=== PATIENT | female | born 1945 | race Caucasian/White ===

== ENCOUNTER → 2016-06-25 | Outpatient (CLI) | payer MEDICARE ==
--- NOTE | 2016-06-25 10:34 | RAD ---
DATE: 06/25/16 EXAM: DIGITAL SCREEN BILAT W/CAD HISTORY: Routine screening COMPARISON: 06/01/15 This study was interpreted with the benefit of Computerized Aided Detection (CAD). TECHNIQUE: CC and MLO views of both breasts are obtained. FINDINGS: Breast Density: FATTY The breast parenchyma is primarily fatty replaced. Breast parenchyma level density A.. Scattered benign-appearing calcifications are seen in both breasts IMPRESSION: Benign findings BI-RADS CATEGORY: 2 BENIGN FINDING(S) RECOMMENDED FOLLOW-UP: 12M 12 MONTH FOLLOW-UP PQRS compliance statement: Patient information was entered into a reminder system with a target due date for the next mammogram. Mammography is a sensitive method for finding small breast cancers, but it does not detect them all and is not a substitute for careful clinical examination. A negative mammogram does not negate a clinically suspicious finding and should not result in delay in biopsying a clinically suspicious abnormality. "Our facility is accredited by the [employer] Mammography Program."
== END | disposition home or self-care (01) ==
LOC: MAMMO 09:46
PROVIDERS: ATTEND Family Medicine
DX: Z12.31 Encounter for screening mammogram for malignant neoplasm of breast (principal)
CPT/HCPCS: G0202; 77067

== ENCOUNTER → 2016-11-27 | Outpatient (CLI) | payer MEDICARE ==
--- NOTE | 2016-11-27 12:07 | RAD ---
Radionuclide gastric emptying study, 11/27/2016: History: Abdominal tightness This study was performed utilizing a solid test meal radiolabeled with 2.1 mCi of technetium 99m sulfur colloid. The time to half emptying of the test meal from the patient's stomach was estimated at 333 minutes. A normal T1/2 is 60 minutes +/- 30 minutes. IMPRESSION: Markedly delayed gastric emptying.
== END | disposition home or self-care (01) ==
LOC: NM 09:00
PROVIDERS: ATTEND Internal Medicine Gastroenterology
DX: K30 Functional dyspepsia (principal)
CPT/HCPCS: 78264; A9541

== ENCOUNTER → 2017-07-22 | Outpatient (CLI) | payer MEDICARE | END | disposition home or self-care (01) | LOC: MAMMO 13:41 | DX: Z12.31 Encounter for screening mammogram for malignant neoplasm of breast (principal) | CPT/HCPCS: 77063; 77067 ==

== ENCOUNTER → 2017-07-29 | Outpatient (CLI) | payer MEDICARE | END | disposition home or self-care (01) | LOC: US 10:38 | DX: R92.8 Other abnormal and inconclusive findings on diagnostic imaging of breast (principal) | CPT/HCPCS: 76641 ==

== ENCOUNTER → 2018-01-07 | Outpatient (CLI) | payer MEDICARE ==
--- NOTE | 2018-01-07 15:22 | RAD ---
Left breast ultrasound, 01/07/2018: History: Follow-up breast nodule A targeted ultrasound exam was performed at the 8-9 o'clock location approximately 4 cm from the nipple where a small nodule was identified on the 07/29/2017 exam. This smooth nodule demonstrates low level internal echoes. There is no definite posterior acoustic enhancement or shadowing. It measures 3 x 2 x 3 mm compared to measurements of 3 x 3 x 4 mm on the previous study. This slight difference could be on a technical basis. The nodule has not enlarged. No new abnormality is seen in this region. IMPRESSION: Stable small left breast nodule, probably a complicated cyst. Further sonographic follow-up in 6 months is suggested. BI-RADS 3-probably benign findings
== END | disposition home or self-care (01) ==
LOC: US 14:22
PROVIDERS: ATTEND Family Medicine
DX: N63.24 Unspecified lump in the left breast, lower inner quadrant (principal)
CPT/HCPCS: 76641

== ENCOUNTER → 2018-03-10 | Outpatient (CLI) | payer MEDICARE ==
--- NOTE | 2018-03-10 14:43 | RAD ---
CHEST PA LATERAL History: Shortness of breath for one week. Comparison: December 17, 2004 Findings: 2 views of the chest are submitted. There is some perihilar opacity bilaterally. Cardiac silhouette is similar. There is no dependent pleural fluid or pneumothorax. There is some relative fullness of the right hilar region. There is likely emphysema. Impression: 1. There is some perihilar opacity bilaterally which may be due to mild infiltrate or edema. There is likely emphysema. 2. There is some nonspecific fullness of the right hilar region more apparent on this exam than older exam, lymphadenopathy more definitively excluded by nonemergent CT. Electronically signed by: Sadi Matos MD (03/10/2018 2:39 PM) [email or web address]
== END | disposition home or self-care (01) ==
LOC: RAD 12:56
PROVIDERS: ATTEND Family Medicine
DX: R06.02 Shortness of breath (principal)
CPT/HCPCS: 71046

== ENCOUNTER 2018-06-05 12:20 | Inpatient (IN) | payer MEDICARE ==
[~2018-06-05] VITALS: Ht 160 cm; Wt 103.4 kg
[2018-06-05] MEDS ORDERED: IPRATRPIUM/ALBUTEROL 0.5/2.5MG 3 ML NEBU. NEB ONE (12:30)
--- NOTE | 2018-06-05 12:53 | PHYS DOC ---
Past Medical History Past Medical History: Hypertension, Other Additional Past Medical Histor: EMPHYSEMA Past Surgical History: , Other Additional Past Surgical Histo: BLADDER LIFT,HERNIA,LUMPECTOMY Alcohol Use: None Drug Use: None Adult General Chief Complaint Chief Complaint: SHORTNESS OF BREATH HPI HPI 72-year-old female presenting the emergency department today with worsening shortness of breath with a chronic nonproductive cough. Her dyspnea is worse with exertion and worse when she lays down. No alleviating factors. Reportedly she had decreased walking desats in clinic. She was sent here for further treatment and care. Review of systems is negative for abdominal pain nausea vomiting fevers or chills. All other review of systems is negative unless otherwise noted in history of present illness. ED course: 72-year-old female presenting with worsening dyspnea and decreasing oxygen saturations. On arrival the patient's blood pressure is quite elevated at 187 systolic. On examination she has crackles at the bases. Wheezing present as well. The patient was given a nebulizer here in the emergency department. Chest x-ray ordered along with blood work and EKG. EKG obtained and reviewed by myself shows sinus rhythm with a regular rate. ST segments congruent. Not suggestive of ACS. Lead V6 is difficult to interpret due to variable baseline and artifact. Review of Systems Review of Systems SEE ABOVE. Current Medications Current Medications Current Medications Medications (Trade) Dose Ordered Sig/Linda Start Time Stop Time Status Last Admin Dose Admin Albuterol/ Ipratropium (Duoneb) 3 ml 1X ONCE 06/05/18 12:30 06/05/18 12:31 DC 06/05/18 12:49 3 ML Furosemide (Lasix) 20 mg 1X ONCE 06/05/18 14:30 06/05/18 14:31 DC 06/05/18 15:16 20 MG Allergies Allergies Allergies Coded Allergies Type Severity Reaction Last Updated Verified Penicillins Allergy Unknown 01/08/17 Yes Physical Exam Physical Exam SEE ABOVE Constitutional: Well developed, well nourished, no acute distress, non-toxic appearance. HENT: Normocephalic, atraumatic, bilateral external ears normal, oropharynx moist, no oral exudates, nose normal. [] Eyes: PERRLA, EOMI, conjunctiva normal, no discharge. Neck: Normal range of motion, no tenderness, supple, no stridor. [] Cardiovascular:Heart rate regular rhythm, no murmur Lungs & Thorax: ABOVE. not in respiratory distress. Abdomen: Bowel sounds normal, soft, no tenderness, no masses, no pulsatile masses. Skin: Warm, dry, no erythema, no rash. [] Back: No tenderness, no CVA tenderness. [] Extremities: No tenderness, no cyanosis, no clubbing, ROM intact, no edema. Neurologic: Alert and oriented X 3, normal motor function, normal sensory function, no focal deficits noted. Psychologic: Affect normal, judgement normal, mood normal. [] Current Patient Data Vital Signs Vital Signs Date Time Temp Pulse Resp B/P (MAP) Pulse Ox O2 Delivery O2 Flow Rate FiO2 06/05/18 13:31 70 161/111 (128) 95 Nasal Cannula 2.0 06/05/18 12:23 98.1 20 98.1 Lab Values Laboratory Tests Test 06/05/18 12:30 06/05/18 13:15 White Blood Count 5.8 x10^3/uL (4.0-11.0) Red Blood Count 4.15 x10^6/uL (3.50-5.40) Hemoglobin 12.9 g/dL (12.0-15.5) Hematocrit 38.9 % (36.0-47.0) Mean Corpuscular Volume 94 fL (79-100) Mean Corpuscular Hemoglobin 31 pg (25-35) Mean Corpuscular Hemoglobin Concent 33 g/dL (31-37) Red Cell Distribution Width 13.7 % (11.5-14.5) Platelet Count 220 x10^3/uL (140-400) Neutrophils (%) (Auto) 69 % (31-73) Lymphocytes (%) (Auto) 22 % (24-48) L Monocytes (%) (Auto) 7 % (0-9) Eosinophils (%) (Auto) 1 % (0-3) Basophils (%) (Auto) 1 % (0-3) Neutrophils # (Auto) 4.0 x10^3uL (1.8-7.7) Lymphocytes # (Auto) 1.3 x10^3/uL (1.0-4.8) Monocytes # (Auto) 0.4 x10^3/uL (0.0-1.1) Eosinophils # (Auto) 0.1 x10^3/uL (0.0-0.7) Basophils # (Auto) 0.1 x10^3/uL (0.0-0.2) Sodium Level 142 mmol/L (136-145) Potassium Level 3.9 mmol/L (3.5-5.1) Chloride Level 105 mmol/L (98-107) Carbon Dioxide Level 28 mmol/L (21-32) Anion Gap 9 (6-14) Blood Urea Nitrogen 14 mg/dL (7-20) Creatinine 0.6 mg/dL (0.6-1.0) Estimated GFR (Cockcroft-Gault) 98.8 Glucose Level 97 mg/dL (70-99) Calcium Level 8.8 mg/dL (8.5-10.1) Total Bilirubin 0.8 mg/dL (0.2-1.0) Direct Bilirubin 0.2 mg/dL (0.0-0.2) Aspartate Amino Transferase (AST) 44 U/L (15-37) H Alanine Aminotransferase (ALT) 60 U/L (14-59) H Alkaline Phosphatase 147 U/L (46-116) H Troponin I Quantitative < 0.017 ng/mL (0.000-0.055) LQ-Vgc-Z-Type Natriuretic Peptide 1722 pg/mL (0-124) H Total Protein 6.1 g/dL (6.4-8.2) L Albumin 3.2 g/dL (3.4-5.0) L Lipase 95 U/L (73-393) Laboratory Tests 06/05/18 12:30 Laboratory Tests 06/05/18 13:15 EKG EKG [] Radiology/Procedures Radiology/Procedures [] Course & Med Decision Making Course & Med Decision Making Pertinent Labs and Imaging studies reviewed. (See chart for details) [] Dragon Disclaimer Dragon Disclaimer This electronic medical record was generated, in whole or in part, using a voice recognition dictation system. Departure Departure Impression: Primary Impression: Pulmonary embolism Additional Impression: CHF (congestive heart failure) Disposition: ADMITTED INPATIENT Admitting Physician: Sukumar Gibbs Condition: STABLE Referrals: SUKUMAR GIBBS MD (PCP) Critical Care Time Critical care time spent was 45 minutes exclusive of procedures. Time was spent evaluating the patient, ordering the administration of medications, reevaluating the patient, discussing with the admitting provider and documenting. Problem Qualifiers CESILIA FLEMING MD Jun 05, 2018 12:53
--- NOTE | 2018-06-05 13:05 | RAD ---
Exam performed: One view chest HISTORY: Shortness of air. DATE OF SERVICE: 06/05/2018. Comparison made to a two-view chest from 03/08/2018. FINDINGS: Heart size is mildly enlarged, however stable. There is pulmonary vascular congestion. Prominent interstitial and airspace opacities are seen in both perihilar regions there is no pleural effusion or pneumothorax. IMPRESSION: Stable mild cardiomegaly with Central vascular congestion no with CHF or bilateral perihilar infiltrates. Electronically signed by: Jessica Guerra MD (06/05/2018 1:02 PM) [place] [id number]
[2018-06-05 13:13] LABS: BASO # 0.1 x10^3/uL (0.0-0.2); BASO % 1 % (0-3); EOS # 0.1 x10^3/uL (0.0-0.7); EOS % 1 % (0-3); HEMATOCRIT 38.9 % (36.0-47.0); HEMOGLOBIN 12.9 g/dL (12.0-15.5); LYMPH # 1.3 x10^3/uL (1.0-4.8); LYMPH % 22 % (24-48); MEAN CORPUSCULAR HEMOGLOBIN 31 pg (25-35); MEAN CORPUSCULAR HGB CONC 33 g/dL (31-37); MEAN CORPUSCULAR VOLUME 94 fL (79-100); MONO # 0.4 x10^3/uL (0.0-1.1); MONO % 7 % (0-9); NEUT % 69 % (31-73); PLATELET COUNT 220 x10^3/uL (140-400); RED BLOOD COUNT 4.15 x10^6/uL (3.50-5.40); RED CELL DISTRIBUTION WIDTH 13.7 % (11.5-14.5); WHITE BLOOD COUNT 5.8 x10^3/uL (4.0-11.0)
[2018-06-05 13:39] LABS: CALCIUM 8.8 mg/dL (8.5-10.1); CREATININE 0.6 mg/dL (0.6-1.0); GFR 98.8; POTASSIUM 3.9 mmol/L (3.5-5.1)
[2018-06-05 13:45] LABS: ALBUMIN 3.2 g/dL (3.4-5.0); DIRECT BILIRUBIN 0.2 mg/dL (0.0-0.2); TOTAL BILIRUBIN 0.8 mg/dL (0.2-1.0); TOTAL PROTEIN 6.1 g/dL (6.4-8.2)
[2018-06-05] MEDS ORDERED: FUROSEMIDE 20 MG/2 ML VIAL. IVP ONE (14:30)
[2018-06-05] MEDS ORDERED: MORPHINE SULFATE 2 MG/ML VIAL. IV PRN (15:00)
[2018-06-05] MEDS ORDERED: CONTRAST GIVEN. MC PRN (15:00)
[2018-06-05] MEDS ORDERED: ONDANSETRON PF 4 MG/2 ML VIAL. IV PRN (15:00)
[2018-06-05] MEDS ORDERED: IOHEXOL 350 MG/ML 100 ML VIAL. IV ONE (15:00)
[2018-06-05] MEDS ORDERED: HEPARIN for IV BOLUS 10,000 UNIT/10 ML VIAL. IV PRN ×2 (16:00)
--- NOTE | 2018-06-05 16:06 | RAD ---
Chest CTA History: Worsening shortness of air, cough Technique: After bolus of intravenous contrast, CT imaging was performed of the chest. Multiplanar reconstruction images to include MIP reconstruction images are submitted. Exposure: One or more of the following individualized dose reduction techniques were utilized for this examination: 1. Automated exposure control 2. Adjustment of the mA and/or kV according to patient size 3. Use of iterative reconstruction technique. Comparison: Chest CT with contrast 12/17/2004 Findings: [There is some motion degradation.] There are some smaller pulmonary emboli of the lower lobes bilaterally and also of the lingula. There is no pleural or pericardial effusion or pneumothorax. There is moderate to severe centrilobular emphysema with upper zone predominance. There is mediastinal and left greater than right hilar lymphadenopathy, more confluent subcarinal saeid mass about 2 cm short axis dimension. AP window node measures about 1.1 cm short dimension. A few right paratracheal nodes measure about 1.1 cm short axis dimension. Largest left hilar node measures about 1.5 cm short axis dimension. Largest right hilar node measures about 1 cm short axis dimension. There is multilevel thoracic spondylosis and degenerative disc disease. There is mild dilatation of esophagus. There is minimal patchy infiltrate of the left upper lobe. Impression: 1. There are pulmonary emboli such as of the lower lobes bilaterally and lingula. 2. There is nonspecific hilar and mediastinal lymphadenopathy. While benign etiologies are in the differential considerations, neoplastic etiology is not excluded. 3. There is mild dilatation of the esophagus. 4. There is emphysema with upper zone predominance. 5. There is minimal patchy infiltrate of the left upper lobe. FOR INTERNAL CODING PURPOSES Critical result: Findings discussed with CESILIA FLEMING at 06/05/2018 4:01 PM. RESULT CODE: (C) Electronically signed by: Sadi Matos MD (06/05/2018 4:03 PM) [id number]
[2018-06-05] MEDS ORDERED: HEPARIN for IV BOLUS 10,000 UNIT/10 ML VIAL. IV ONE (16:30)
[2018-06-05] MEDS: HEPARIN 25,000UTS/500ML PREMIX 500 ML IV PRN (16:39)
[2018-06-05 17:30] VITALS: BP 146/91
[2018-06-05] MEDS ORDERED: PARO25TA3 PO (17:45)
[2018-06-05] MEDS ORDERED: PANT20TA2 PO (17:45)
[2018-06-05] MEDS ORDERED: CALC-614 PO (17:45)
[2018-06-05] MEDS ORDERED: AMLO5TAB10 PO (17:45)
[2018-06-05] MEDS ORDERED: CHOL10003 PO (17:45)
[2018-06-05] MEDS ORDERED: OMEG-117 PO (17:45)
[2018-06-05] MEDS ORDERED: CETI10TA16 PO (17:46)
[2018-06-05 17:59] VITALS: BP 143/78
--- NOTE | 2018-06-05 18:11 | NUR ---
pt admitted to room 106. oriented to room and call light. placed on 2L nc. Heparin drip running at 16u/kg. 34 ml/hr. next draw scheduled for 2229. will monitor.
--- NOTE | 2018-06-05 19:25 | HP ---
ADMIT DATE: 06/05/2018 CHIEF COMPLAINT: Shortness of breath. HISTORY OF PRESENT ILLNESS AND HOSPITAL COURSE: This patient is a 72-year-old female with known history of hypertension and COPD, had been struggling with shortness of breath for the last 2-3 weeks, was initially treated with p.o. steroids and started on additional inhalers. She failed to improve and came to the office for further evaluation, was found to have persistent low O2 sats, was retreated with steroids and brought back for possible initiation of oxygen support and consult to Pulmonary was made, but due to the patient's persistent low oxygen saturation, she was recommended to go to the Emergency Room for further evaluation. During Emergency Room evaluation, she was found to have a chest x-ray with evidence of mild congestive heart failure, also had a CT angiogram, which showed pulmonary embolus. Due to severity of symptoms and new findings, she was admitted for anticoagulation, Pulmonary and Cardiology consultation. PAST MEDICAL HISTORY: Significant for: 1. Hypertension. 2. COPD. 3. Gastroesophageal reflux disease. 4. Anxiety and depression. 5. High cholesterol. MEDICATIONS: On admissions are amlodipine 5 mg daily, Paxil CR 25 mg daily, Protonix 40 mg daily, ProAir inhaler 2 puffs q.6h. p.r.n., DuoNeb nebulizer q.6h., which was recently changed to Trelegy daily inhaler, vitamin D unknown dosage 2 tablets daily, Benadryl p.r.n. for allergies, fish oil daily. ALLERGIES: THE PATIENT'S EXHIBITS ALLERGIES TO PENICILLIN. FAMILY HISTORY: Significant for CHF in her mother and emphysema in her mother, father with Alzheimer's. SOCIAL HISTORY: The patient is a former smoker, but quit more than 15 years ago, but did smoke for up to 30 years. The patient does not use alcohol. She is and lives with her spouse. PAST SURGICAL HISTORY: Significant for lumpectomy, hemorrhoidectomy and soft tissue mass removal from her lower extremity. REVIEW OF SYSTEMS: Significant for progressive and ongoing shortness of breath. Denies any productive sputum, fever, nausea, vomiting, diarrhea or significant chest pain. PHYSICAL EXAMINATION: GENERAL: This is a well-nourished, morbidly obese female, in mild distress. She is alert and oriented x 3. HEENT: Benign. NECK: Supple. CARDIAC: Regular rate and rhythm. LUNGS: Clear on today's exam, but had previously had significant wheezing. ABDOMEN: Soft, nontender. EXTREMITIES: 2+ pulses without significant edema. NEUROLOGIC: Showed no unilateral findings. ASSESSMENT: 1. Acute on chronic respiratory failure. 2. Pulmonary embolus. 3. Acute congestive heart failure. 4. Exacerbation of chronic obstructive pulmonary disease. 5. Hypertension. PLAN: To proceed with routine breathing treatments, IV heparin. Cardiac consultation with echo. ART TOTH MD DR: CIARA/denny JOB#: [id number] / [id number]
[2018-06-05] MEDS: BUDESONIDE 0.5 MG/2 ML NEBU. NEB SCH (19:52)
[2018-06-05] MEDS: IPRATRPIUM/ALBUTEROL 0.5/2.5MG 3 ML NEBU. NEB SCH (19:52)
[2018-06-05 21:00] VITALS: BP 134/78
[2018-06-05 23:00] VITALS: BP 158/89
[2018-06-06] VITALS (14 sets, daily range): BP systolic 126–150; BP diastolic 72–90
[2018-06-06 04:41] LABS: BASO # 0.1 x10^3/uL (0.0-0.2); BASO % 1 % (0-3); EOS # 0.2 x10^3/uL (0.0-0.7); EOS % 4 % (0-3); HEMATOCRIT 35.9 % (36.0-47.0); HEMOGLOBIN 11.7 g/dL (12.0-15.5); LYMPH # 1.6 x10^3/uL (1.0-4.8); LYMPH % 30 % (24-48); MEAN CORPUSCULAR HEMOGLOBIN 31 pg (25-35); MEAN CORPUSCULAR HGB CONC 33 g/dL (31-37); MEAN CORPUSCULAR VOLUME 94 fL (79-100); MONO # 0.5 x10^3/uL (0.0-1.1); MONO % 9 % (0-9); NEUT # 2.9 x10^3uL (1.8-7.7); NEUT % 56 % (31-73); PLATELET COUNT 206 x10^3/uL (140-400); RED BLOOD COUNT 3.81 x10^6/uL (3.50-5.40); RED CELL DISTRIBUTION WIDTH 13.7 % (11.5-14.5); WHITE BLOOD COUNT 5.3 x10^3/uL (4.0-11.0)
[2018-06-06 05:28] LABS: CALCIUM 8.5 mg/dL (8.5-10.1); CREATININE 0.6 mg/dL (0.6-1.0); GFR 98.8; POTASSIUM 3.4 mmol/L (3.5-5.1)
--- NOTE | 2018-06-06 06:51 | PDOC ---
Provider Note Provider Note [id number] acute resp fail pe ae copd ?beth see orders TERRY ANDRADE MD Jun 06, 2018 06:51
--- NOTE | 2018-06-06 07:23 | CONS ---
DATE OF CONSULTATION: 06/06/2018 REASON FOR CONSULTATION: I was asked to see this 72-year-old lady for acute respiratory failure, pulmonary embolism. HISTORY OF PRESENT ILLNESS: She does have history of [id number] smoking, stopped smoking in . She does have COPD. She has had shortness of breath for the past few weeks, got worse for the past few days. She was found to have low oxygen saturation, was evaluated in the Emergency Room. She was found to have pulmonary embolism. She does have shortness of breath, which is improved since she has been on heparin drip and bronchodilators. She has had wheezing. She has cough with no sputum production. She has had cough for many years. She has gastroesophageal reflux symptoms. She denies chest pain, fever or chills. She does snore, has excessive daytime sleepiness, has not had a sleep study. PAST MEDICAL HISTORY: Hypertension, COPD. ALLERGIES: PENICILLIN. MEDICATIONS: Currently, she is on heparin drip, Norvasc, Paxil, Protonix, Pulmicort, DuoNebs. SOCIAL HISTORY: History of [id number] smoking, stopped smoking in . FAMILY HISTORY: Hypertension. REVIEW OF SYSTEMS: As mentioned as above. She has had lower extremity edema. Other systems are otherwise negative. PHYSICAL EXAMINATION: GENERAL: This is an obese lady. VITAL SIGNS: O2 saturation on 2 liters of oxygen is 95%, respiratory rate 18, heart rate 77, blood pressure 140/84, temperature 98.9. HEENT: Normocephalic, atraumatic. Pupils equal, round, reactive to light. There is shallow oropharynx. Nose is clear. NECK: There is no JVD, lymphadenopathy or thyromegaly. CARDIOVASCULAR: Regular rate and rhythm. PMI is nondisplaced. CHEST: Inspection is normal. LUNGS: End expiratory wheezing with forced exhalation bilaterally. ABDOMEN: Soft and obese. Bowel sounds are good. There is no mass. EXTREMITIES: There is trace edema. LYMPHATICS: There is no lymphadenopathy. NEUROLOGIC: Alert and oriented. SKIN: Chronic changes. LABORATORY DATA: I reviewed the following lab data: CT of the chest showed pulmonary embolism in the lower lobe bilaterally and lingula. There is subcarinal lymphadenopathy measuring 2 cm, AP window node measuring 1.1 cm, few right paratracheal measuring 1.1 cm, largest left hilar node measuring 1.5 cm, largest right hilar node measuring 1 cm, mild dilatation of esophagus, emphysema and minimal patchy infiltrate of the left upper lobe was noted. WBC 5.8, hemoglobin 12.9, platelet 220. Sodium 142, potassium 3.4, chloride 103, CO2 32, glucose 99, BUN 11, creatinine 0.6. Troponin less than 0.017. BNP 1722. IMPRESSION: 1. Acute respiratory failure secondary to acute pulmonary embolism and acute exacerbation of chronic obstructive pulmonary disease, cannot rule out congestive heart failure versus others. 2. Abnormal CT of the chest as mentioned as above. 3. Acute pulmonary embolism. 4. Acute exacerbation of chronic obstructive pulmonary disease. 5. Obesity, snoring and excessive daytime sleepiness, probable obstructive sleep apnea-hypopnea syndrome. 6. Hypokalemia. 7. Hypertension. 8. Ex-smoker. PLAN AND RECOMMENDATIONS: 1. Continue not smoking. 2. Titrate FiO2 to keep O2 saturation 92%. 3. Continue bronchodilator. 4. Inhaled corticosteroid. 5. I agree with heparin drip, may consider Coumadin versus DOAC agents. 6. Lower extremity venous Doppler. 7. Echocardiogram. 8. Replace potassium. 9. Protonix for stress ulcer prophylaxis. 10. I have discussed obstructive sleep apnea-hypopnea syndrome, the importance of diagnosis and treatment, if untreated increased cardiovascular and [employer] morbidity and mortality. I do recommend sleep study as an outpatient. The findings and recommendations were discussed with the patient and RN. I have answered all of the patient's questions. She understood and agreed to proceed with the plan. Thank you very much for allowing me to participate in care of this very nice lady. TERRY ANDRADE M.D. : NORMA/denny JOB#: [id number] / [id number]
[2018-06-06] MEDS: ANTI-COAG MONITOR BY PHARMACY. MC PRN (07:37)
--- NOTE | 2018-06-06 08:08 | PDOC ---
SUBJECTIVE Subjective Pt states that she is feeling okay, but biggest problem for her is fatigue and shortness of breath with activity. Denies any current pain or shortness of breath. OBJECTIVE Vital Signs Vital Signs Date Time Temp Pulse Resp B/P (MAP) Pulse Ox O2 Delivery O2 Flow Rate FiO2 06/06/18 07:00 64 16 146/90 (108) 99 Nasal Cannula 2.0 06/06/18 06:00 77 14 140/84 (102) 95 Nasal Cannula 2.0 06/06/18 05:03 64 16 134/73 (93) 93 Nasal Cannula 2.0 06/06/18 04:00 Nasal Cannula 2.0 06/06/18 04:00 98.9 62 12 150/75 (100) 95 Nasal Cannula 2.0 98.9 06/06/18 03:00 64 14 130/72 (91) 93 Nasal Cannula 2.0 06/06/18 02:00 65 14 145/82 (103) 97 Nasal Cannula 2.0 06/06/18 01:00 64 14 126/75 (92) 97 Nasal Cannula 2.0 06/06/18 00:01 98.9 66 12 140/83 (102) 97 Nasal Cannula 2.0 98.9 06/06/18 00:00 Nasal Cannula 2.0 06/05/18 23:00 67 14 158/89 (112) 97 Nasal Cannula 2.0 06/05/18 22:00 70 13 97 Nasal Cannula 2.0 06/05/18 21:00 70 12 134/78 (96) 97 Nasal Cannula 2.0 06/05/18 20:00 98.6 74 12 97 Nasal Cannula 2.0 98.6 06/05/18 20:00 Nasal Cannula 2.0 06/05/18 19:30 95 Nasal Cannula 2.0 06/05/18 19:00 86 12 97 Nasal Cannula 2.0 06/05/18 18:28 Nasal Cannula 2.0 06/05/18 17:59 70 12 143/78 (99) 97 Nasal Cannula 2.0 06/05/18 17:30 98.4 74 12 146/91 (109) 100 Nasal Cannula 98.4 06/05/18 16:53 76 176/81 (112) 95 Nasal Cannula 2.0 06/05/18 16:14 70 113/53 (73) 96 Nasal Cannula 2.0 06/05/18 16:04 100 145/78 (100) Nasal Cannula 2.0 06/05/18 15:14 72 162/79 (106) Nasal Cannula 2.0 06/05/18 15:01 70 166/92 (116) 92 Nasal Cannula 2.0 06/05/18 14:31 70 144/113 (123) 94 Nasal Cannula 2.0 06/05/18 14:01 72 168/79 (108) 92 Nasal Cannula 2.0 06/05/18 13:31 70 161/111 (128) 95 Nasal Cannula 2.0 06/05/18 13:01 74 153/74 (100) 97 Nasal Cannula 2.0 06/05/18 12:50 98 Nasal Cannula 2.0 06/05/18 12:23 98.1 90 20 187/88 (121) 83 Room Air 98.1 I & O Intake and Output 06/06/18 07:00 Intake Total 961.5 ml Output Total 0 ml Balance 961.5 ml Intake Oral 500 ml IV Total 461.5 ml Output Urine Total 0 ml # Voids 2 PHYSICAL EXAM Physical Exam GENERAL: This is a well-nourished, morbidly obese female, NAD, AOx3 HEENT: MMM, EOMI, no scleral icterus/injection NECK: Supple, no TM, no LA CARDIAC: Regular rate and rhythm. LUNGS: Clear on today's exam, but had previously had significant wheezing. ABDOMEN: Soft, nontender. 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 Acute respiratory failure- 2/2 new onset of PE. Currently on Heparin gtt. Cardiology and Pulmonology consulted. LE Doppler pending. ECHO pending. Pt has nonspecific mediastinal and hilar LA, will consult Heme/Onc as well. 2. Acute congestive heart failure. 3. Exacerbation of chronic obstructive pulmonary disease- pt currently getting Duonebs and albuterol 4. Hypertension- moderately controlled. Pt currently receiving Amlodipine 5mg 5. Anemia- mild. CTM 6. Hypokalemia- will replace COMMENT Lab Laboratory Tests Test 06/05/18 12:30 06/05/18 13:15 06/05/18 18:05 06/05/18 22:30 White Blood Count 5.8 x10^3/uL (4.0-11.0) Red Blood Count 4.15 x10^6/uL (3.50-5.40) Hemoglobin 12.9 g/dL (12.0-15.5) Hematocrit 38.9 % (36.0-47.0) Mean Corpuscular Volume 94 fL (79-100) Mean Corpuscular Hemoglobin 31 pg (25-35) Mean Corpuscular Hemoglobin Concent 33 g/dL (31-37) Red Cell Distribution Width 13.7 % (11.5-14.5) Platelet Count 220 x10^3/uL (140-400) Neutrophils (%) (Auto) 69 % (31-73) Lymphocytes (%) (Auto) 22 % (24-48) Monocytes (%) (Auto) 7 % (0-9) Eosinophils (%) (Auto) 1 % (0-3) Basophils (%) (Auto) 1 % (0-3) Neutrophils # (Auto) 4.0 x10^3uL (1.8-7.7) Lymphocytes # (Auto) 1.3 x10^3/uL (1.0-4.8) Monocytes # (Auto) 0.4 x10^3/uL (0.0-1.1) Eosinophils # (Auto) 0.1 x10^3/uL (0.0-0.7) Basophils # (Auto) 0.1 x10^3/uL (0.0-0.2) Sodium Level 142 mmol/L (136-145) Potassium Level 3.9 mmol/L (3.5-5.1) Chloride Level 105 mmol/L (98-107) Carbon Dioxide Level 28 mmol/L (21-32) Anion Gap 9 (6-14) Blood Urea Nitrogen 14 mg/dL (7-20) Creatinine 0.6 mg/dL (0.6-1.0) Estimated GFR (Cockcroft-Gault) 98.8 Glucose Level 97 mg/dL (70-99) Calcium Level 8.8 mg/dL (8.5-10.1) Total Bilirubin 0.8 mg/dL (0.2-1.0) Direct Bilirubin 0.2 mg/dL (0.0-0.2) Aspartate Amino Transf (AST/SGOT) 44 U/L (15-37) Alanine Aminotransferase (ALT/SGPT) 60 U/L (14-59) Alkaline Phosphatase 147 U/L (46-116) Troponin I Quantitative < 0.017 ng/mL (0.000-0.055) 0.018 ng/mL (0.000-0.055) < 0.017 ng/mL (0.000-0.055) MV-Jri-J-Type Natriuretic Peptide 1722 pg/mL (0-124) Total Protein 6.1 g/dL (6.4-8.2) Albumin 3.2 g/dL (3.4-5.0) Lipase 95 U/L (73-393) Heparin Anti-Xa Act, Unfractionated 0.78 IU/mL (0.30-0.70) Test 06/06/18 04:00 White Blood Count 5.3 x10^3/uL (4.0-11.0) Red Blood Count 3.81 x10^6/uL (3.50-5.40) Hemoglobin 11.7 g/dL (12.0-15.5) Hematocrit 35.9 % (36.0-47.0) Mean Corpuscular Volume 94 fL (79-100) Mean Corpuscular Hemoglobin 31 pg (25-35) Mean Corpuscular Hemoglobin Concent 33 g/dL (31-37) Red Cell Distribution Width 13.7 % (11.5-14.5) Platelet Count 206 x10^3/uL (140-400) Neutrophils (%) (Auto) 56 % (31-73) Lymphocytes (%) (Auto) 30 % (24-48) Monocytes (%) (Auto) 9 % (0-9) Eosinophils (%) (Auto) 4 % (0-3) Basophils (%) (Auto) 1 % (0-3) Neutrophils # (Auto) 2.9 x10^3uL (1.8-7.7) Lymphocytes # (Auto) 1.6 x10^3/uL (1.0-4.8) Monocytes # (Auto) 0.5 x10^3/uL (0.0-1.1) Eosinophils # (Auto) 0.2 x10^3/uL (0.0-0.7) Basophils # (Auto) 0.1 x10^3/uL (0.0-0.2) Heparin Anti-Xa Act, Unfractionated 0.69 IU/mL (0.30-0.70) Sodium Level 142 mmol/L (136-145) Potassium Level 3.4 mmol/L (3.5-5.1) Chloride Level 103 mmol/L (98-107) Carbon Dioxide Level 32 mmol/L (21-32) Anion Gap 7 (6-14) Blood Urea Nitrogen 11 mg/dL (7-20) Creatinine 0.6 mg/dL (0.6-1.0) Estimated GFR (Cockcroft-Gault) 98.8 Glucose Level 99 mg/dL (70-99) Calcium Level 8.5 mg/dL (8.5-10.1) SHY MCNEIL MD Jun 06, 2018 08:08
[2018-06-06] MEDS: BUDESONIDE 0.5 MG/2 ML NEBU. NEB SCH ×2 (08:13→19:47)
[2018-06-06] MEDS: IPRATRPIUM/ALBUTEROL 0.5/2.5MG 3 ML NEBU. NEB SCH ×4 (08:13→19:47)
[2018-06-06] MEDS: PANTOPRAZOLE 40 MG TABLET.DR. PO SCH (08:14)
[2018-06-06] MEDS: PAROXETINE 12.5 MG PO SCH (08:15)
[2018-06-06] MEDS ORDERED: POTASSIUM CHLORIDE 20 MEQ TABLET.ER. PO ONE (08:15)
[2018-06-06] MEDS: amLODIPine BESYLATE 5 MG TABLET PO SCH (08:15)
[2018-06-06] MEDS: HEPARIN 25,000UTS/500ML PREMIX 500 ML IV PRN (08:17)
--- NOTE | 2018-06-06 10:32 | PDOC2 ---
CARDIOLOGY CONSULT NOTE CHEIF COMPLAINT: Shortness of air HPI: 72 y.o woman admitted to the hospital with persistent hypoxia and diagnosed with P.E in the setting of known COPD. Cardiology asked to evaluate her for echocardiogram to rule out significant right heart strain. Her baseline health status is that she is able to do things around the house such as ADL's w/o problems. She has not had any chest pain. Denies any syncope, palpitations, long trips etc. No history of cancer, nausea, vomiting, bleeding, diarrhea, fevers or chills. PMHX: 1. Seasonal allergies 2. HTN 3. GERD 4. COPD SOCHX: Lives with . No alcohol, tob or illicits. Retired FAMHX: NC CURRENT MEDS: Amlodipine 5mg daily Hep gtt. ALLERGIES: Allergies Coded Allergies Type Severity Reaction Last Updated Verified Penicillins Allergy Unknown 01/08/17 Yes ROS: Negative for 11/30 systems reviewed unless otherwise noted above in HPI. PHYSICAL EXAM: Vital Signs: Vital Signs Date Time Temp Pulse Resp B/P (MAP) Pulse Ox O2 Delivery O2 Flow Rate FiO2 06/06/18 08:15 Nasal Cannula 2.0 06/06/18 08:15 70 149/90 06/06/18 08:00 98.2 18 99 98.2 Physical Exam: GEN.: No apparent distress. Alert and oriented. HEENT: Head is normocephalic, atraumatic NECK: Supple. LUNGS: Clear to auscultation. HEART: RRR, S1, S2 present. Peripheral pulses intact ABDOMEN: Soft, nontender. Positive bowel sounds. EXTREMITIES: Without any cyanosis. NEUROLOGIC: Normal speech, normal tone PSYCHIATRIC: Normal affect, normal mood. SKIN: Chronic venous stasis changes DIAGNOSTIC TESTING: CTA with pulmonary emboli Tele - SR Labs reviewed. Mild BNP elevation Cr wnl Troponin wnl. ASSESSMENT: 1. P.E - etiology is unclear 2. HTN - well controlled 3. Mild BNP elevation - likely mild diastolic HF - acute on chronc PLAN: 1. Agree with hep gtt for now. Consider NOAC 2. Will obtain echo tomorrow. 3. No further CV testing needed at this time. Thanks TEJA BOLAÑOS MD Jun 06, 2018 10:32
--- NOTE | 2018-06-06 11:20 | RAD ---
Bilateral Leg Venous Doppler Ultrasound, 06/06/2018 Indication: Bilateral PE Comparison: None available Procedure: Real-time grayscale, color flow color duplex Doppler and spectral analysis are obtained with and without compression in the area of the common femoral vein, superficial femoral vein - femoral vein junction, main femoral vein (superficial femoral vein) and popliteal vein. Veins of the proximal calf are also imaged. Findings: There is a nonocclusive clot in the left popliteal vein with occlusive clot in one of the 2 left posterior tibial veins. The remainder left lower extremity deep venous system is patent and compressible. No additional intraluminal clot is identified. There is normal duplex flow, color flow and compressibility of all right lower extremity visualized vein segments. No evidence of deep venous thrombus is present. Impression: Occlusive clot in the left popliteal vein and one or 2 posterior tibial veins. No evidence of DVT seen in the right lower extremity. Electronically signed by: Jessica Guerra MD (06/06/2018 11:17 AM) [facility]
--- NOTE | 2018-06-06 15:00 | EKG ---
[facility] [address] [place] [address] Test Date: 2018-06-05 Test Time: 12:33:01 Pat Name: NATIVIDAD AMARAL Department: Room: 106 1 Gender: F [employer] Instructor: : [id number] Requested By: CESILIA FLEMING Order Number: [id number] Reading MD: Micheal Brown MD Measurements Intervals [place] Rate: 78 P: 72 NV: 154 QRS: 69 QRSD: 86 T: 42 QT: 386 QTc: 444 Interpretive Statements SINUS RHYTHM NON-SPECIFIC ST/T CHANGES Electronically Signed On 06-09-2018 12:01:33 CDT by Micheal Brown MD
--- NOTE | 2018-06-06 17:34 | NUR ---
Pt transferred from ICU, report received from YADIRA Mckoy. Pt alert and oriented to room and surroundings. Family at bedside. Pt continues on heparin gtt. No further needs.
[2018-06-07] MEDS: HEPARIN 25,000UTS/500ML PREMIX 500 ML IV PRN ×2 (01:06→17:17)
[2018-06-07 02:50] LABS: CALCIUM 8.7 mg/dL (8.5-10.1); CREATININE 0.8 mg/dL (0.6-1.0); GFR 70.9; POTASSIUM 3.7 mmol/L (3.5-5.1)
[2018-06-07 04:06] VITALS: BP 142/83
[2018-06-07] MEDS: IPRATRPIUM/ALBUTEROL 0.5/2.5MG 3 ML NEBU. NEB SCH ×4 (05:59→19:55)
[2018-06-07] MEDS: BUDESONIDE 0.5 MG/2 ML NEBU. NEB SCH ×2 (05:59→19:55)
[2018-06-07 07:30] VITALS: BP 134/78
--- NOTE | 2018-06-07 07:46 | PDOC ---
PULMONARY PROGRESS NOTES Subjective sob better, has cough, no sputum, no cp Vitals Vital Signs Date Time Temp Pulse Resp B/P (MAP) Pulse Ox O2 Delivery O2 Flow Rate FiO2 06/07/18 07:30 97.3 68 18 134/78 (96) 91 Nasal Cannula 3.0 97.3 ROS: No Nausea, No Chest Pain General: Alert, No acute distress HEENT: Other (nc at perrl) Lungs: Clear Cardiovascular: S1, S2 Abdomen: Soft, Non-tender Neuro Exam: Alert, Oriented Extremities: Other (edema) Skin: Warm Labs Laboratory Tests Test 06/05/18 12:30 06/05/18 13:15 06/05/18 18:05 06/05/18 22:30 White Blood Count 5.8 x10^3/uL (4.0-11.0) Red Blood Count 4.15 x10^6/uL (3.50-5.40) Hemoglobin 12.9 g/dL (12.0-15.5) Hematocrit 38.9 % (36.0-47.0) Mean Corpuscular Volume 94 fL (79-100) Mean Corpuscular Hemoglobin 31 pg (25-35) Mean Corpuscular Hemoglobin Concent 33 g/dL (31-37) Red Cell Distribution Width 13.7 % (11.5-14.5) Platelet Count 220 x10^3/uL (140-400) Neutrophils (%) (Auto) 69 % (31-73) Lymphocytes (%) (Auto) 22 % (24-48) Monocytes (%) (Auto) 7 % (0-9) Eosinophils (%) (Auto) 1 % (0-3) Basophils (%) (Auto) 1 % (0-3) Neutrophils # (Auto) 4.0 x10^3uL (1.8-7.7) Lymphocytes # (Auto) 1.3 x10^3/uL (1.0-4.8) Monocytes # (Auto) 0.4 x10^3/uL (0.0-1.1) Eosinophils # (Auto) 0.1 x10^3/uL (0.0-0.7) Basophils # (Auto) 0.1 x10^3/uL (0.0-0.2) Sodium Level 142 mmol/L (136-145) Potassium Level 3.9 mmol/L (3.5-5.1) Chloride Level 105 mmol/L (98-107) Carbon Dioxide Level 28 mmol/L (21-32) Anion Gap 9 (6-14) Blood Urea Nitrogen 14 mg/dL (7-20) Creatinine 0.6 mg/dL (0.6-1.0) Estimated GFR (Cockcroft-Gault) 98.8 Glucose Level 97 mg/dL (70-99) Calcium Level 8.8 mg/dL (8.5-10.1) Total Bilirubin 0.8 mg/dL (0.2-1.0) Direct Bilirubin 0.2 mg/dL (0.0-0.2) Aspartate Amino Transf (AST/SGOT) 44 U/L (15-37) Alanine Aminotransferase (ALT/SGPT) 60 U/L (14-59) Alkaline Phosphatase 147 U/L (46-116) Troponin I Quantitative < 0.017 ng/mL (0.000-0.055) 0.018 ng/mL (0.000-0.055) < 0.017 ng/mL (0.000-0.055) SQ-Mud-Z-Type Natriuretic Peptide 1722 pg/mL (0-124) Total Protein 6.1 g/dL (6.4-8.2) Albumin 3.2 g/dL (3.4-5.0) Lipase 95 U/L (73-393) Heparin Anti-Xa Act, Unfractionated 0.78 IU/mL (0.30-0.70) Test 06/06/18 04:00 06/06/18 11:10 06/06/18 19:55 06/07/18 01:50 White Blood Count 5.3 x10^3/uL (4.0-11.0) Red Blood Count 3.81 x10^6/uL (3.50-5.40) Hemoglobin 11.7 g/dL (12.0-15.5) Hematocrit 35.9 % (36.0-47.0) Mean Corpuscular Volume 94 fL (79-100) Mean Corpuscular Hemoglobin 31 pg (25-35) Mean Corpuscular Hemoglobin Concent 33 g/dL (31-37) Red Cell Distribution Width 13.7 % (11.5-14.5) Platelet Count 206 x10^3/uL (140-400) Neutrophils (%) (Auto) 56 % (31-73) Lymphocytes (%) (Auto) 30 % (24-48) Monocytes (%) (Auto) 9 % (0-9) Eosinophils (%) (Auto) 4 % (0-3) Basophils (%) (Auto) 1 % (0-3) Neutrophils # (Auto) 2.9 x10^3uL (1.8-7.7) Lymphocytes # (Auto) 1.6 x10^3/uL (1.0-4.8) Monocytes # (Auto) 0.5 x10^3/uL (0.0-1.1) Eosinophils # (Auto) 0.2 x10^3/uL (0.0-0.7) Basophils # (Auto) 0.1 x10^3/uL (0.0-0.2) Heparin Anti-Xa Act, Unfractionated 0.69 IU/mL (0.30-0.70) 0.71 IU/mL (0.30-0.70) 0.59 IU/mL (0.30-0.70) 0.53 IU/mL (0.30-0.70) Sodium Level 142 mmol/L (136-145) 141 mmol/L (136-145) Potassium Level 3.4 mmol/L (3.5-5.1) 3.7 mmol/L (3.5-5.1) Chloride Level 103 mmol/L (98-107) 104 mmol/L (98-107) Carbon Dioxide Level 32 mmol/L (21-32) 32 mmol/L (21-32) Anion Gap 7 (6-14) 5 (6-14) Blood Urea Nitrogen 11 mg/dL (7-20) 10 mg/dL (7-20) Creatinine 0.6 mg/dL (0.6-1.0) 0.8 mg/dL (0.6-1.0) Estimated GFR (Cockcroft-Gault) 98.8 70.9 Glucose Level 99 mg/dL (70-99) 107 mg/dL (70-99) Calcium Level 8.5 mg/dL (8.5-10.1) 8.7 mg/dL (8.5-10.1) Thyroid Stimulating Hormone (TSH) 2.070 uIU/mL (0.358-3.74) Laboratory Tests Test 06/06/18 11:10 06/06/18 19:55 06/07/18 01:50 Heparin Anti-Xa Act, Unfractionated 0.71 IU/mL (0.30-0.70) 0.59 IU/mL (0.30-0.70) 0.53 IU/mL (0.30-0.70) Sodium Level 141 mmol/L (136-145) Potassium Level 3.7 mmol/L (3.5-5.1) Chloride Level 104 mmol/L (98-107) Carbon Dioxide Level 32 mmol/L (21-32) Anion Gap 5 (6-14) Blood Urea Nitrogen 10 mg/dL (7-20) Creatinine 0.8 mg/dL (0.6-1.0) Estimated GFR (Cockcroft-Gault) 70.9 Glucose Level 107 mg/dL (70-99) Calcium Level 8.7 mg/dL (8.5-10.1) Medications Active Scripts Medications Dose Route/Sig Max Daily Dose Days Date Category Cetirizine Hcl 10 Mg Tablet 1 Tab PO DAILY 06/05/18 Reported Vitamin D3 (Cholecalciferol (Vitamin D3)) 1,000 Unit Tablet 2 Tab PO DAILY 06/05/18 Reported Fish Oil 1,200 mg Softgel ([place]-3/Dha/Epa/Fish Oil) 1 Each Capsule.dr 1 Each PO DAILY 06/05/18 Reported Calcium Citrate 200 Mg Tablet 600 Mg PO DAILY 06/05/18 Reported Amlodipine Besylate 5 Mg Tablet 5 Mg PO DAILY 06/05/18 Reported Protonix (Pantoprazole Sodium) 20 Mg Tablet.dr 40 Mg PO DAILY 06/05/18 Reported Paroxetine Hcl 25 Mg Tab.er.24h 25 Mg PO DAILY 06/05/18 Reported Comments le venous doppler Occlusive clot in the left popliteal vein and one or 2 posterior tibial veins. No evidence of DVT seen in the right lower extremity. Impression . IMPRESSION: 1. Acute respiratory failure secondary to acute pulmonary embolism and acute exacerbation of chronic obstructive pulmonary disease, acute diastolic congestive heart failure versus others. 2. Abnormal CT of the chest as mentioned as above. 3. Acute pulmonary embolism, DVT 4. Acute exacerbation of chronic obstructive pulmonary disease. 5. Obesity, snoring and excessive daytime sleepiness, probable obstructive sleep apnea-hypopnea syndrome. 6. Hypokalemia, resolved. 7. Hypertension. 8. Ex-smoker. Plan . PLAN AND RECOMMENDATIONS: 1. Continue not smoking. 2. Titrate FiO2 to keep O2 saturation 92%. 3. Continue bronchodilator. 4. Inhaled corticosteroid. 5. I agree with heparin drip, may consider Coumadin versus DOAC agents. 6. Lower extremity venous Doppler, DVT. 7. Echocardiogram pending. 8. monitor potassium. 9. Protonix for stress ulcer prophylaxis. 10. 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 I do recommend sleep study as an outpatient. discussed w pt, rn TERRY ANDRADE MD Jun 07, 2018 07:46
[2018-06-07] MEDS: ANTI-COAG MONITOR BY PHARMACY. MC PRN (07:50)
--- NOTE | 2018-06-07 08:25 | PDOC2 ---
CONSULT Date of Consult Date of Consult DATE: 06/07/18 TIME: 08:06 Reason for Consult Reason for Consult: PE Identification/Chief Complaint Chief Complaint SOB Source Source: Chart review, Patient History of Present Illness Reason for Visit: Admitted from ER on 06/05 with new diagnosis of PE She has been having increased dyspnea especially with exertion since February. Occasional CP when cough but not remarkable to her. She has not had hemoptysis. Was being eval by cardiology and with low O2 sats sent to ER. CT angio showed robert lower lobe and lingular clots and subsequently had LE dopplers showing clot left popliteal. She injured her left ankle years ago and has had some chronic discoloration, but no recent changes or new swelling or pain. She has never had any clotting issues, nor has she been on anticoagulation for other reasons. She did use hormones in past but years ago. Currently on IV heparin. 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 Had recently been told she could drive and wear O2. I told her to inform the company she works for she will be on anticoagulation, but doubt that would preclude. Quit (2 ppd for nearly 30 years but quit in 1995) ALCOHOL: none Drugs: None Lives: with Family Current Problem List Problem List Problems Medical Problems: (1) CHF (congestive heart failure) Status: Acute (2) Pulmonary embolism Status: Acute Current Medications Current Medications Current Medications Albuterol/ Ipratropium (Duoneb) 3 ml 1X ONCE NEB Last administered on at 12:49; Start 06/05/18 at 12:30; Stop 06/05/18 at 12:31; Status DC Furosemide (Lasix) 20 mg 1X ONCE IVP Last administered on 06/05/18at 15:16; Start 06/05/18 at 14:30; Stop 06/05/18 at 14:31; Status DC Ondansetron HCl (Zofran) 4 mg PRN Q8HRS PRN IV NAUSEA/VOMITING; Start 06/05/18 at 15:00; Stop 06/06/18 at 14:59; Status DC Morphine Sulfate (Morphine Sulfate) 2 mg PRN Q2HR PRN IV PAIN; Start 06/05/18 at 15:00; Stop 06/06/18 at 14:59; Status DC Iohexol (Omnipaque 350 Mg/ml) 100 ml 1X ONCE IV Last administered on at 15:11; Start 06/05/18 at 15:00; Stop 06/05/18 at 15:01; Status DC Info (CONTRAST GIVEN -- Rx MONITORING) 1 each PRN DAILY PRN MC SEE COMMENTS; Start 06/05/18 at 15:00; Stop 06/07/18 at 14:59 Heparin Sodium/ Dextrose 500 ml @ 33.3 mls/hr CONT PRN IV SEE I/O RECORD Last administered on 06/07/18at 01:06; Start 06/05/18 at 16:00 Heparin Sodium (Porcine) (Heparin Sodium) 3,150 unit PRN Q6HRS PRN IV FOR UFH LEVEL LESS THAN 0.2; Start 06/05/18 at 16:00; Stop 06/05/18 at 16:30; Status DC Heparin Sodium (Porcine) (Heparin Sodium) 1,550 unit PRN Q6HRS PRN IV FOR UFH LEVEL 0.2 - 0.29; Start 06/05/18 at 16:00; Stop 06/05/18 at 16:30; Status DC Heparin Sodium (Porcine) (Heparin Sodium) 8,350 unit 1X ONCE IV Last administered on 06/05/18at 16:37; Start 06/05/18 at 16:30; Stop 06/05/18 at 16:31 ; Status DC Albuterol/ Ipratropium (Duoneb) 3 ml RTQID NEB Last administered on 06/07/18at 05:59; Start 06/05/18 at 20:00 Budesonide (Pulmicort) 0.5 mg RTBID NEB Last administered on 06/07/18at 05:59; Start 06/05/18 at 20:00 Info (Anti-Coagulation Monitoring By Pharmacy) 1 each PRN DAILY PRN MC SEE COMMENTS Last administered on 06/07/18at 07:50; Start 06/05/18 at 19:00 Amlodipine Besylate (Norvasc) 5 mg DAILY PO Last administered on 06/06/18at 08: 15; Start 06/06/18 at 09:00 Pantoprazole Sodium (Protonix) 40 mg DAILYAC PO Last administered on 06/06/18at 08:14; Start 06/06/18 at 07:30 Paroxetine HCl (Paxil Cr) 25 mg DAILY PO Last administered on 06/06/18at 08:15; Start 06/06/18 at 09:00 Potassium Chloride (Klor-Con) 40 meq 1X ONCE PO Last administered on at 08:16; Start 06/06/18 at 08:15; Stop 06/06/18 at 08:16; Status DC Active Scripts Active Reported Cetirizine Hcl 10 Mg Tablet 1 Tab PO DAILY Vitamin D3 (Cholecalciferol (Vitamin D3)) 1,000 Unit Tablet 2 Tab PO DAILY Fish Oil 1,200 mg Softgel (Ambler-3/Dha/Epa/Fish Oil) 1 Each Capsule.dr 1 Each PO DAILY Calcium Citrate 200 Mg Tablet 600 Mg PO DAILY Amlodipine Besylate 5 Mg Tablet 5 Mg PO DAILY Protonix (Pantoprazole Sodium) 20 Mg Tablet.dr 40 Mg PO DAILY Paroxetine Hcl 25 Mg Tab.er.24h 25 Mg PO DAILY Allergies Allergies: Coded Allergies: Penicillins (Verified Allergy, Unknown, 01/08/17) ROS Respiratory: YES: Cough, Shortness of breath, SOB with excertion Physical Exam General: Alert, Oriented X3, Cooperative, No acute distress HEENT: Atraumatic, Mucous membr. moist/pink Lungs: Clear to auscultation Heart: Regular rate, No murmurs Abdomen: Normal bowel sounds, Soft, No hepatosplenomegaly, Other (overweight) Extremities: No clubbing, No edema, Other (she does have some chronic discoloration, but moreso at her left than right ankle, but is not swollen) Skin: No rashes Neuro: Normal speech, Normal tone, Cranial nerves 3-12 NL Psych/Mental Status: Mental status NL, Mood NL MUSCULOSKELETAL: No joint tenderness Vitals VITALS Vital Signs Date Time Temp Pulse Resp B/P (MAP) Pulse Ox O2 Delivery O2 Flow Rate FiO2 06/07/18 07:46 Nasal Cannula 2.0 06/07/18 07:30 97.3 68 18 134/78 (96) 91 97.3 Labs Labs Laboratory Tests Test 06/05/18 12:30 06/05/18 13:15 06/05/18 18:05 06/05/18 22:30 White Blood Count 5.8 x10^3/uL (4.0-11.0) Red Blood Count 4.15 x10^6/uL (3.50-5.40) Hemoglobin 12.9 g/dL (12.0-15.5) Hematocrit 38.9 % (36.0-47.0) Mean Corpuscular Volume 94 fL (79-100) Mean Corpuscular Hemoglobin 31 pg (25-35) Mean Corpuscular Hemoglobin Concent 33 g/dL (31-37) Red Cell Distribution Width 13.7 % (11.5-14.5) Platelet Count 220 x10^3/uL (140-400) Neutrophils (%) (Auto) 69 % (31-73) Lymphocytes (%) (Auto) 22 % (24-48) Monocytes (%) (Auto) 7 % (0-9) Eosinophils (%) (Auto) 1 % (0-3) Basophils (%) (Auto) 1 % (0-3) Neutrophils # (Auto) 4.0 x10^3uL (1.8-7.7) Lymphocytes # (Auto) 1.3 x10^3/uL (1.0-4.8) Monocytes # (Auto) 0.4 x10^3/uL (0.0-1.1) Eosinophils # (Auto) 0.1 x10^3/uL (0.0-0.7) Basophils # (Auto) 0.1 x10^3/uL (0.0-0.2) Sodium Level 142 mmol/L (136-145) Potassium Level 3.9 mmol/L (3.5-5.1) Chloride Level 105 mmol/L (98-107) Carbon Dioxide Level 28 mmol/L (21-32) Anion Gap 9 (6-14) Blood Urea Nitrogen 14 mg/dL (7-20) Creatinine 0.6 mg/dL (0.6-1.0) Estimated GFR (Cockcroft-Gault) 98.8 Glucose Level 97 mg/dL (70-99) Calcium Level 8.8 mg/dL (8.5-10.1) Total Bilirubin 0.8 mg/dL (0.2-1.0) Direct Bilirubin 0.2 mg/dL (0.0-0.2) Aspartate Amino Transf (AST/SGOT) 44 U/L (15-37) Alanine Aminotransferase (ALT/SGPT) 60 U/L (14-59) Alkaline Phosphatase 147 U/L (46-116) Troponin I Quantitative < 0.017 ng/mL (0.000-0.055) 0.018 ng/mL (0.000-0.055) < 0.017 ng/mL (0.000-0.055) ZW-Tdb-H-Type Natriuretic Peptide 1722 pg/mL (0-124) Total Protein 6.1 g/dL (6.4-8.2) Albumin 3.2 g/dL (3.4-5.0) Lipase 95 U/L (73-393) Heparin Anti-Xa Act, Unfractionated 0.78 IU/mL (0.30-0.70) Test 06/06/18 04:00 06/06/18 11:10 06/06/18 19:55 06/07/18 01:50 White Blood Count 5.3 x10^3/uL (4.0-11.0) Red Blood Count 3.81 x10^6/uL (3.50-5.40) Hemoglobin 11.7 g/dL (12.0-15.5) Hematocrit 35.9 % (36.0-47.0) Mean Corpuscular Volume 94 fL (79-100) Mean Corpuscular Hemoglobin 31 pg (25-35) Mean Corpuscular Hemoglobin Concent 33 g/dL (31-37) Red Cell Distribution Width 13.7 % (11.5-14.5) Platelet Count 206 x10^3/uL (140-400) Neutrophils (%) (Auto) 56 % (31-73) Lymphocytes (%) (Auto) 30 % (24-48) Monocytes (%) (Auto) 9 % (0-9) Eosinophils (%) (Auto) 4 % (0-3) Basophils (%) (Auto) 1 % (0-3) Neutrophils # (Auto) 2.9 x10^3uL (1.8-7.7) Lymphocytes # (Auto) 1.6 x10^3/uL (1.0-4.8) Monocytes # (Auto) 0.5 x10^3/uL (0.0-1.1) Eosinophils # (Auto) 0.2 x10^3/uL (0.0-0.7) Basophils # (Auto) 0.1 x10^3/uL (0.0-0.2) Heparin Anti-Xa Act, Unfractionated 0.69 IU/mL (0.30-0.70) 0.71 IU/mL (0.30-0.70) 0.59 IU/mL (0.30-0.70) 0.53 IU/mL (0.30-0.70) Sodium Level 142 mmol/L (136-145) 141 mmol/L (136-145) Potassium Level 3.4 mmol/L (3.5-5.1) 3.7 mmol/L (3.5-5.1) Chloride Level 103 mmol/L (98-107) 104 mmol/L (98-107) Carbon Dioxide Level 32 mmol/L (21-32) 32 mmol/L (21-32) Anion Gap 7 (6-14) 5 (6-14) Blood Urea Nitrogen 11 mg/dL (7-20) 10 mg/dL (7-20) Creatinine 0.6 mg/dL (0.6-1.0) 0.8 mg/dL (0.6-1.0) Estimated GFR (Cockcroft-Gault) 98.8 70.9 Glucose Level 99 mg/dL (70-99) 107 mg/dL (70-99) Calcium Level 8.5 mg/dL (8.5-10.1) 8.7 mg/dL (8.5-10.1) Thyroid Stimulating Hormone (TSH) 2.070 uIU/mL (0.358-3.74) Laboratory Tests Test 06/06/18 11:10 06/06/18 19:55 06/07/18 01:50 Heparin Anti-Xa Act, Unfractionated 0.71 IU/mL (0.30-0.70) 0.59 IU/mL (0.30-0.70) 0.53 IU/mL (0.30-0.70) Sodium Level 141 mmol/L (136-145) Potassium Level 3.7 mmol/L (3.5-5.1) Chloride Level 104 mmol/L (98-107) Carbon Dioxide Level 32 mmol/L (21-32) Anion Gap 5 (6-14) Blood Urea Nitrogen 10 mg/dL (7-20) Creatinine 0.8 mg/dL (0.6-1.0) Estimated GFR (Cockcroft-Gault) 70.9 Glucose Level 107 mg/dL (70-99) Calcium Level 8.7 mg/dL (8.5-10.1) Images Images CT reviewed Assessment/Plan Assessment/Plan PE and DVT of LLE. Unsure of exactly how long present given symptoms but I think she warrants longer term anticoagulation given this is not provoked, age and other medical issues. Currently on IV heparin. She has normal renal function and I think would be appropriate for NOAC as long as insurance covers. I do not see a need for any hypercoag testing given lack of history and age and need for longer term anticoagulation as long as there are no issues or contraindications in the future. In regards to adenopathy on CT overall still small volume and in setting of her recent PE likely best to f/u with pulm and CT in 2-3 months rather than pursue invasive evaluation like bronch in setting of newly diagnosed PE. 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 Thank you for consult, please call if there are other questions. JONATHAN SAUER MD Jun 07, 2018 08:25
--- NOTE | 2018-06-07 08:45 | PDOC ---
SUBJECTIVE Subjective Pt doing well this morning. Still requiring oxygen. C/o wheezing; has been on prednisone in the past and states that this has helped open her airway previously. OBJECTIVE Vital Signs Vital Signs Date Time Temp Pulse Resp B/P (MAP) Pulse Ox O2 Delivery O2 Flow Rate FiO2 06/07/18 07:46 Nasal Cannula 2.0 06/07/18 07:30 97.3 68 18 134/78 (96) 91 Nasal Cannula 3.0 97.3 06/07/18 06:01 94 Nasal Cannula 2.0 06/07/18 06:00 94 Nasal Cannula 2.0 06/07/18 04:06 98.2 67 20 142/83 (102) 93 Nasal Cannula 3.0 98.2 06/07/18 03:59 Nasal Cannula 06/06/18 22:55 98.4 64 19 139/88 (105) 91 Nasal Cannula 3.0 98.4 06/06/18 20:30 Nasal Cannula 2.0 06/06/18 20:08 98.4 76 18 139/86 (103) 93 Room Air 98.4 06/06/18 19:59 Room Air 06/06/18 19:49 95 Nasal Cannula 2.0 06/06/18 19:49 95 Nasal Cannula 2.0 06/06/18 17:17 97.7 75 20 150/84 (106) 97.7 06/06/18 16:00 98.3 84 18 140/76 (97) 99 Nasal Cannula 2.0 98.3 06/06/18 15:42 Nasal Cannula 2.0 06/06/18 12:00 98.3 68 24 136/77 (96) 99 Nasal Cannula 2.0 98.3 06/06/18 11:46 Nasal Cannula 2.0 I & O Intake and Output 06/07/18 07:00 Intake Total 475 ml Output Total 300 ml Balance 175 ml Intake Oral 0 ml IV Total 475 ml Output Urine Total 300 ml PHYSICAL EXAM Physical Exam GENERAL: This is a well-nourished, morbidly obese female, NAD, AOx3 HEENT: MMM, EOMI, no scleral icterus/injection NECK: Supple, no TM, no LA CARDIAC: Regular rate and rhythm. LUNGS: Clear on today's exam, but had previously had significant wheezing. ABDOMEN: Soft, nontender. 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 Acute respiratory failure- 2/2 new onset of PE. Pt found to have DVT. Currently on Heparin gtt. Cardiology and Pulmonology following. ECHO pending. 2. Nonspecific mild mediastinal and hilar LA- Heme/Onc has seen, recommended repeat CT in 2-3 months 3. Exacerbation of chronic obstructive pulmonary disease- pt currently getting Duonebs and albuterol, will start Prednisone 4. Hypertension- controlled with Amlodipine 5mg 5. Anemia- mild. CTM 6. Hypokalemia- resolved after replacement COMMENT Lab Laboratory Tests Test 06/06/18 11:10 06/06/18 19:55 06/07/18 01:50 Heparin Anti-Xa Act, Unfractionated 0.71 IU/mL (0.30-0.70) 0.59 IU/mL (0.30-0.70) 0.53 IU/mL (0.30-0.70) Sodium Level 141 mmol/L (136-145) Potassium Level 3.7 mmol/L (3.5-5.1) Chloride Level 104 mmol/L (98-107) Carbon Dioxide Level 32 mmol/L (21-32) Anion Gap 5 (6-14) Blood Urea Nitrogen 10 mg/dL (7-20) Creatinine 0.8 mg/dL (0.6-1.0) Estimated GFR (Cockcroft-Gault) 70.9 Glucose Level 107 mg/dL (70-99) Calcium Level 8.7 mg/dL (8.5-10.1) SHY MCNEIL MD Jun 07, 2018 08:45
[2018-06-07] MEDS: predniSONE 10 MG TABLET PO SCH (09:28)
[2018-06-07] MEDS: PANTOPRAZOLE 40 MG TABLET.DR. PO SCH (09:28)
[2018-06-07] MEDS: PAROXETINE 12.5 MG PO SCH (09:29)
[2018-06-07] MEDS: amLODIPine BESYLATE 5 MG TABLET PO SCH (09:29)
[2018-06-07 12:48] VITALS: BP 132/80
[2018-06-07 15:18] VITALS: BP 112/90
[2018-06-07 18:17] VITALS: BP 121/71
--- NOTE | 2018-06-07 19:15 | NUR ---
Pt sitting up in chair,assessment completed vss poc explained pt questions and concerns answered. Call light in reach will resume care and continue to monitor pt.
[2018-06-07 23:00] VITALS: BP 159/92
[2018-06-08 03:13] VITALS: BP 149/80
[2018-06-08] MEDS: PANTOPRAZOLE 40 MG TABLET.DR. PO SCH (06:19)
[2018-06-08 07:00] VITALS: BP 164/72
[2018-06-08] MEDS: IPRATRPIUM/ALBUTEROL 0.5/2.5MG 3 ML NEBU. NEB SCH ×3 (07:37→16:55)
[2018-06-08] MEDS: BUDESONIDE 0.5 MG/2 ML NEBU. NEB SCH (07:37)
--- NOTE | 2018-06-08 08:45 | CARD ---
MR#: [id number] Account#: Date of Study: 06/07/2018 Ordering Physician: Rosa: Myra Thomas RDCS APPROVED REPORT EXAM: Two-dimensional and M-mode echocardiogram with Doppler and color Doppler. Other Information Quality : Average Rhythm : NSRTechnically limited study due to body habitus. INDICATION COPD RISK FACTORS Hypertension Obesity Hyperlipidemia Diabetes Smoking 2D DIMENSIONS RVDd3.3 (2.9-3.5cm)Left Atrium(2D)3.9 (1.6-4.0cm) IVSd1.1 (0.7-1.1cm)Aortic Root(2D)2.9 (2.0-3.7cm) LVDd4.5 (3.9-5.9cm)LVOT Diameter1.9 (1.8-2.4cm) PWd1.1 (0.7-1.1cm)LVDs2.8 (2.5-4.0cm) FS (%) 38.1 %SV63.9 ml LVEF(%)68.4 (>50%) Aortic Valve AoV Peak Arpan.232.8cm/sAoV VTI45.9cm AO Peak GR.21.7mmHgLVOT Peak Arpan.134.0cm/s AO Mean GR.11mmHgAVA (VMAX)1.59cm2 Mitral Valve MV E Cnjgzldp375.4cm/sMV DECEL [id number] MV A Vapojqgc241.9cm/sE/A Ratio0.9 MV A [id number] Tricuspid Valve TR P. Gmtfhpyq478go/sTR Peak Gr.21mmHg Pulmonary Vein S1 Ziaoqhjd47.5cm/sD2 Srqsuvkl99.0cm/s PVa [id number] LEFT VENTRICLE The left ventricle is normal size. There is mild concentric left ventricular hypertrophy. The left ve ntricular systolic function is normal and the ejection fraction is within normal range. Estmated ejec tion fraction 55-60%. There is normal LV segmental wall motion. Tissue Doppler imaging reveals mild l eft ventricular diastolic dysfunction. RIGHT VENTRICLE The right ventricle is normal size. There is normal right ventricular wall thickness. The right ventr icular systolic function is normal. ATRIA The left atrium size is normal. The right atrium size is normal. The interatrial septum is intact wit h no evidence for an atrial septal defect or patent foramen ovale as noted on 2-D or Doppler imaging. AORTIC VALVE Not well visualized. Doppler and Color Flow revealed no significant aortic regurgitation. There is no significant aortic valvular stenosis. MITRAL VALVE The mitral valve is normal in structure and function. Doppler and Color-flow revealed trace mitral re gurgitation. TRICUSPID VALVE The tricuspid valve is normal in structure and function. Doppler and Color Flow revealed trace tricus pid regurgitation. Estimated PAP 25mmHg. There is no tricuspid valve prolapse or vegetation. PULMONIC VALVE Doppler and Color Flow revealed no pulmonic valvular regurgitation. There is no pulmonic valvular vannessa nosis. GREAT VESSELS The aortic root is normal in size. The ascending aorta is normal in size. The IVC is normal in size a nd collapses >50% with inspiration. PERICARDIAL EFFUSION There is no pleural effusion. There is no evidence of significant pericardial effusion. Critical Notification Critical Value: No <Conclusion> The left ventricular systolic function is normal and the ejection fraction is within normal range. E stmated ejection fraction 55-60%. There is normal LV segmental wall motion. The right ventricle is normal size. The right ventricular systolic function is normal. Doppler and Color Flow revealed trace tricuspid regurgitation. Estimated PAP 25mmHg. Signed by : Micheal Brown, Electronically Approved : 06/07/2018 11:46:31
[2018-06-08 08:56] LABS: HEMATOCRIT 37.6 % (36.0-47.0); RED BLOOD COUNT 3.99 x10^6/uL (3.50-5.40); RED CELL DISTRIBUTION WIDTH 13.7 % (11.5-14.5); WHITE BLOOD COUNT 5.7 x10^3/uL (4.0-11.0)
[2018-06-08] MEDS: PAROXETINE 12.5 MG PO SCH (09:12)
[2018-06-08] MEDS: predniSONE 10 MG TABLET PO SCH (09:13)
[2018-06-08] MEDS: amLODIPine BESYLATE 5 MG TABLET PO SCH (09:13)
[2018-06-08 09:16] LABS: PROTHROMBIN TIME PATIENT 13.4 SEC (11.7-14.0)
[2018-06-08 09:30] LABS: CALCIUM 9.2 mg/dL (8.5-10.1); CREATININE 0.6 mg/dL (0.6-1.0); GFR 98.8; POTASSIUM 3.9 mmol/L (3.5-5.1)
--- NOTE | 2018-06-08 09:39 | PDOC ---
SUBJECTIVE Subjective S: Left lower extremity swelling better, still on oxygen O: Physical exam: Weight ~100 kg Gen.: Well-nourished and well-developed, resting in bed, no acute distress. Psychiatric: Pleasant mood and affect Labs: White count 5.3, hemoglobin 11.7, platelets 206 Creatinine 0.8 Rads: Evidence of bilateral lower lobe and lingula pulmonary emboli and left lower extremity DVT and left popliteal and posterior tibial veins Assessment and Plan: She is a 72-year-old female admitted with PE and DVT of LLE. Currently on IV heparin. She has normal renal function and is appropriate for NOAC as long as insurance covers. Will begin apixaban 10 mg by mouth twice a day 7 days to be followed by 5 mg by mouth twice a day indefinitely for now. I do not see a need for any hypercoag testing given lack of history and age and possible need for longer term anticoagulation as long as there are no issues or contraindications in the future. In regards to adenopathy on CT overall still small volume and in setting of her recent PE likely best to f/u with pulm and CT in 2 months (due ~Jul) rather than pursue invasive evaluation like bronch in setting of newly diagnosed PE. Re: history of smoking, she quit in the late 90s. 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 We will have her follow-up with us after discharge to see how she's doing. Thank you kindly, please call if there are further questions. OBJECTIVE Vital Signs Vital Signs Date Time Temp Pulse Resp B/P (MAP) Pulse Ox O2 Delivery O2 Flow Rate FiO2 06/08/18 09:13 66 164/72 06/08/18 08:00 Nasal Cannula 3.5 06/08/18 07:40 95 Nasal Cannula 2.0 06/08/18 07:00 96.1 66 17 164/72 (102) 100 Nasal Cannula 3.5 96.1 06/08/18 03:13 97.7 79 18 149/80 (103) 94 Nasal Cannula 3.0 97.7 06/07/18 23:00 97.9 65 20 159/92 (114) 96 Nasal Cannula 3.0 97.9 06/07/18 19:57 93 Nasal Cannula 2.0 06/07/18 19:56 93 Nasal Cannula 2.0 06/07/18 19:15 Nasal Cannula 2.0 06/07/18 18:17 97.8 78 121/71 (88) 93 Nasal Cannula 2.0 97.8 06/07/18 15:18 97.4 70 112/90 (97) 89 Nasal Cannula 2.0 97.4 06/07/18 12:48 97.6 77 132/80 (97) 90 Nasal Cannula 2.0 97.6 06/07/18 11:30 Nasal Cannula 2.0 06/07/18 10:24 Nasal Cannula 2.0 I & O Intake and Output 06/08/18 07:00 Intake Total 580 ml Balance 580 ml Intake Oral 580 ml # Voids 3 COMMENT Lab Laboratory Tests Test 06/08/18 07:35 White Blood Count 5.7 x10^3/uL (4.0-11.0) Red Blood Count 3.99 x10^6/uL (3.50-5.40) Hemoglobin 12.0 g/dL (12.0-15.5) Hematocrit 37.6 % (36.0-47.0) Mean Corpuscular Volume 94 fL (79-100) Mean Corpuscular Hemoglobin 30 pg (25-35) Mean Corpuscular Hemoglobin Concent 32 g/dL (31-37) Red Cell Distribution Width 13.7 % (11.5-14.5) Platelet Count 236 x10^3/uL (140-400) Heparin Anti-Xa Act, Unfractionated 0.67 IU/mL (0.30-0.70) Sodium Level 145 mmol/L (136-145) Potassium Level 3.9 mmol/L (3.5-5.1) Chloride Level 105 mmol/L (98-107) Carbon Dioxide Level 32 mmol/L (21-32) Anion Gap 8 (6-14) Blood Urea Nitrogen 11 mg/dL (7-20) Creatinine 0.6 mg/dL (0.6-1.0) Estimated GFR (Cockcroft-Gault) 98.8 Glucose Level 93 mg/dL (70-99) Calcium Level 9.2 mg/dL (8.5-10.1) VIOLET OLIVERA MD Jun 08, 2018 09:39
[2018-06-08] MEDS ORDERED: APIXABAN 5 MG TABLET. PO SCH (10:00)
[2018-06-08 11:00] VITALS: BP 154/88
[2018-06-08] MEDS ORDERED: APIX5TAB PO (13:10)
[2018-06-08] MEDS ORDERED: IPRA3AMP29 NEB (13:10)
[2018-06-08] MEDS ORDERED: PRED-220 PO (13:10)
[2018-06-08] MEDS ORDERED: BUDE0.5A3 NEB (13:12)
--- NOTE | 2018-06-08 14:50 | NUR ---
SS following for discharge planning. SS reviewed pt chart. Pt is from home with spouse and is currently requiring oxygen. PT recommended home at discharge. No discharge needs noted at this time. SS will continue to follow for pending discharge needs.
--- NOTE | 2018-06-08 15:12 | PDOC ---
PULMONARY PROGRESS NOTES Subjective not soa Vitals Vital Signs Date Time Temp Pulse Resp B/P (MAP) Pulse Ox O2 Delivery O2 Flow Rate FiO2 06/08/18 11:45 95 Nasal Cannula 2.0 06/08/18 11:00 98.1 68 16 154/88 (110) 98.1 ROS: No Nausea, No Chest Pain General: Alert, No acute distress HEENT: Other (nc at perrl) Lungs: Clear Cardiovascular: S1, S2 Abdomen: Soft, Non-tender Neuro Exam: Alert, Oriented Extremities: Other (edema) Skin: Warm Labs Laboratory Tests Test 06/06/18 19:55 06/07/18 01:50 06/08/18 07:35 Heparin Anti-Xa Act, Unfractionated 0.59 IU/mL (0.30-0.70) 0.53 IU/mL (0.30-0.70) 0.67 IU/mL (0.30-0.70) Sodium Level 141 mmol/L (136-145) 145 mmol/L (136-145) Potassium Level 3.7 mmol/L (3.5-5.1) 3.9 mmol/L (3.5-5.1) Chloride Level 104 mmol/L (98-107) 105 mmol/L (98-107) Carbon Dioxide Level 32 mmol/L (21-32) 32 mmol/L (21-32) Anion Gap 5 (6-14) 8 (6-14) Blood Urea Nitrogen 10 mg/dL (7-20) 11 mg/dL (7-20) Creatinine 0.8 mg/dL (0.6-1.0) 0.6 mg/dL (0.6-1.0) Estimated GFR (Cockcroft-Gault) 70.9 98.8 Glucose Level 107 mg/dL (70-99) 93 mg/dL (70-99) Calcium Level 8.7 mg/dL (8.5-10.1) 9.2 mg/dL (8.5-10.1) White Blood Count 5.7 x10^3/uL (4.0-11.0) Red Blood Count 3.99 x10^6/uL (3.50-5.40) Hemoglobin 12.0 g/dL (12.0-15.5) Hematocrit 37.6 % (36.0-47.0) Mean Corpuscular Volume 94 fL (79-100) Mean Corpuscular Hemoglobin 30 pg (25-35) Mean Corpuscular Hemoglobin Concent 32 g/dL (31-37) Red Cell Distribution Width 13.7 % (11.5-14.5) Platelet Count 236 x10^3/uL (140-400) Prothrombin Time 13.4 SEC (11.7-14.0) Prothromb Time International Ratio 1.1 (0.8-1.1) Laboratory Tests Test 06/08/18 07:35 White Blood Count 5.7 x10^3/uL (4.0-11.0) Red Blood Count 3.99 x10^6/uL (3.50-5.40) Hemoglobin 12.0 g/dL (12.0-15.5) Hematocrit 37.6 % (36.0-47.0) Mean Corpuscular Volume 94 fL (79-100) Mean Corpuscular Hemoglobin 30 pg (25-35) Mean Corpuscular Hemoglobin Concent 32 g/dL (31-37) Red Cell Distribution Width 13.7 % (11.5-14.5) Platelet Count 236 x10^3/uL (140-400) Prothrombin Time 13.4 SEC (11.7-14.0) Prothromb Time International Ratio 1.1 (0.8-1.1) Heparin Anti-Xa Act, Unfractionated 0.67 IU/mL (0.30-0.70) Sodium Level 145 mmol/L (136-145) Potassium Level 3.9 mmol/L (3.5-5.1) Chloride Level 105 mmol/L (98-107) Carbon Dioxide Level 32 mmol/L (21-32) Anion Gap 8 (6-14) Blood Urea Nitrogen 11 mg/dL (7-20) Creatinine 0.6 mg/dL (0.6-1.0) Estimated GFR (Cockcroft-Gault) 98.8 Glucose Level 93 mg/dL (70-99) Calcium Level 9.2 mg/dL (8.5-10.1) Medications Active Scripts Medications Dose Route/Sig Max Daily Dose Days Date Category Cetirizine Hcl 10 Mg Tablet 1 Tab PO DAILY 06/05/18 Reported Vitamin D3 (Cholecalciferol (Vitamin D3)) 1,000 Unit Tablet 2 Tab PO DAILY 06/05/18 Reported Fish Oil 1,200 mg Softgel ([place]-3/Dha/Epa/Fish Oil) 1 Each Capsule. 1 Each PO DAILY 06/05/18 Reported Calcium Citrate 200 Mg Tablet 600 Mg PO DAILY 06/05/18 Reported Amlodipine Besylate 5 Mg Tablet 5 Mg PO DAILY 06/05/18 Reported Protonix (Pantoprazole Sodium) 20 Mg Tablet. 40 Mg PO DAILY 06/05/18 Reported Paroxetine Hcl 25 Mg Tab.er.24h 25 Mg PO DAILY 06/05/18 Reported Comments le venous doppler Occlusive clot in the left popliteal vein and one or 2 posterior tibial veins. No evidence of DVT seen in the right lower extremity. Impression . IMPRESSION: 1. Acute respiratory failure secondary to acute pulmonary embolism and acute/COPD 2. Abnormal CT of the chest as mentioned as above. 3. Acute pulmonary embolism, DVT 4. Acute exacerbation of chronic obstructive pulmonary disease. 5. Obesity, snoring and excessive daytime sleepiness, probable obstructive sleep apnea-hypopnea syndrome. 6. Hypokalemia, resolved. 7. Hypertension. 8. Ex-smoker. Plan . D/C HOME TODAY ELIQUIS FOLLOW UP IN 2 MONTHS OUT PT SLEEP STUDY HEME NOTE FROM DR OLIVERA S: Left lower extremity swelling better, still on oxygen O: Physical exam: Weight ~100 kg Gen.: Well-nourished and well-developed, resting in bed, no acute distress. Psychiatric: Pleasant mood and affect Labs: White count 5.3, hemoglobin 11.7, platelets 206 Creatinine 0.8 Rads: Evidence of bilateral lower lobe and lingula pulmonary emboli and left lower extremity DVT and left popliteal and posterior tibial veins Assessment and Plan: She is a 72-year-old female admitted with PE and DVT of LLE. Currently on IV heparin. She has normal renal function and is appropriate for NOAC as long as insurance covers. Will begin apixaban 10 mg by mouth twice a day 7 days to be followed by 5 mg by mouth twice a day indefinitely for now. I do not see a need for any hypercoag testing given lack of history and age and possible need for longer term anticoagulation as long as there are no issues or contraindications in the future. In regards to adenopathy on CT overall still small volume and in setting of her recent PE likely best to f/u with pulm and CT in 2 months (due ~Jul) rather than pursue invasive evaluation like bronch in setting of newly diagnosed PE. Re: history of smoking, she quit in the late s. 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 We will have her follow-up with us after discharge to see how she's doing. BARBY NATHAN MD Jun 08, 2018 15:12
[2018-06-08] MEDS: ANTI-COAG MONITOR BY PHARMACY. MC PRN (15:26)
--- NOTE | 2018-06-08 16:15 | NUR ---
SS following up with discharge planning. SS received script for home oxygen. SS phoned and faxed script and referral to [facility], ; fax [phone]. SS provided pt with oxygen tank for home. Pt's RN notified.
--- NOTE | 2018-06-08 18:42 | NUR ---
Discharge Note: NATIVIDAD AMARAL Discharge instructions and discharge home medications reviewed with Patient and a copy given. All questions have been answered and understanding verbalized. Follow up instructions given to patient and information on home oxygen. The following instructions and handouts were given: Pulmonary embolus and home oxygen use Discontinued lines and drains: Peripheral IV intact. Patient discharged to Home or Self Care with Spouse via Wheelchair
[2018-06-15] MEDS ORDERED: APIXABAN 5 MG TABLET. PO SCH (21:00)
--- NOTE | 2018-06-23 14:15 | DS ---
DATE OF DISCHARGE: 06/08/2018 ADMITTING DIAGNOSES: 1. Acute on chronic respiratory failure. 2. Pulmonary embolus. 3. Acute congestive heart failure. 4. Chronic obstructive pulmonary disease with exacerbation. 5. Hypertension. HISTORY OF PRESENT ILLNESS AND HOSPITAL COURSE: This patient is a 72-year-old female with known COPD, came to the office with evidence of hypoxia despite aggressive treatment for COPD. The patient continued to be hypoxic. She was directed to go to the Emergency Room for further evaluation. There, she was discovered to have a pulmonary embolus and was admitted for IV anticoagulation and evaluation by Pulmonary Medicine. The patient improved and required oxygen throughout her hospital stay, but was back to baseline, tolerating diet and ambulating. Hematology was consulted for coagulopathy, and Pulmonary was consulted for pulmonary care. She was started on p.o. anticoagulation and plans for discharge were made with home O2 support needed. DISCHARGE MEDICATIONS: She will be continued on Eliquis 10 mg b.i.d. for 1 week, switching to 5 mg b.i.d. at that time. Pulmicort Respules per nebulizer b.i.d. DuoNeb treatments q.6. Prednisone taper starting at 50 mg daily for 2 days, tapering by 10 mg every other day until off. Amlodipine 5 mg daily, calcium 600 mg daily, Claritin 10 mg daily, vitamin D 1000 International Units pills 2 pills daily, fish oil 1200 mg daily, pantoprazole 40 mg daily, Paxil extended release 25 mg daily. She will follow up in the clinic in 1 week for continued care and proceed with oxygen support at 2 liters per nasal cannula continuously. ART TOTH MD DR: CIARA/denny JOB#: [id number] / [id number]
== END 2018-06-08 18:45 | disposition home or self-care (01) | DRG 175 ==
LOC: ER 12:20 → 2 NORTH 14:52 → 1 WEST ICU 17:18 → 2 NORTH 06-06 17:10
PROVIDERS: ADMIT Family Medicine; ATTEND Family Medicine
DX: I26.99 Other pulmonary embolism without acute cor pulmonale (principal); J96.20 Acute and chronic respiratory failure, unspecified whether with hypoxia or hypercapnia; I82.402 Acute embolism and thrombosis of unspecified deep veins of left lower extremity; Z68.41 Body mass index [BMI] 40.0-44.9, adult; J43.9 Emphysema, unspecified; I11.0 Hypertensive heart disease with heart failure; K21.9 Gastro-esophageal reflux disease without esophagitis; F32.9 Major depressive disorder, single episode, unspecified; F41.9 Anxiety disorder, unspecified; E78.00 Pure hypercholesterolemia, unspecified; E66.9 Obesity, unspecified; E87.6 Hypokalemia; G47.33 Obstructive sleep apnea (adult) (pediatric); D64.9 Anemia, unspecified; I50.9 Heart failure, unspecified; Z88.0 Allergy status to penicillin; Z79.899 Other long term (current) drug therapy; Z82.49 Family history of ischemic heart disease and other diseases of the circulatory system; Z87.891 Personal history of nicotine dependence; Z82.5 Family history of asthma and other chronic lower respiratory diseases; Z82.0 Family history of epilepsy and other diseases of the nervous system
CPT/HCPCS: 36415; 71045; 71275; 80048; 80076; 83690; 83880; 84443; 84484; 85025; 85027; 85520; 85610; 93005; 93306; 93970; 94618; 94640; 96374; 96375; J1644; J1940; J7512; J7620; J7626; Q9967; 97110; 97116; 99291-25

== ENCOUNTER → 2018-09-02 | Outpatient (CLI) | payer MEDICARE ==
[~2018-09-02] MED LIST: AMLO5TAB10 PO; APIX5TAB PO; BUDE0.5A3 NEB; CALC-614 PO; CETI10TA16 PO; CHOL10003 PO; IOHEXOL 300 MG/ML 100ML VIAL. IV ONE; IPRA3AMP29 NEB; OMEG-117 PO; PANT20TA2 PO; PARO25TA3 PO; PRED-220 PO
--- NOTE | 2018-09-02 10:56 | RAD ---
PQRS Compliance statement: One or more of the following individualized dose reduction techniques were utilized for this examination: 1. Automated exposure control. 2. Adjustment of the mA and/or kV according to patient size. 3. Use of iterative reconstruction technique. Indication:Lymphadenopathy follow-up. TECHNIQUE: CT chest with IV contrast with multiplanar reformats. COMPARISON: CT chest from 06/05/2018 FINDINGS: Heart is normal in size. No pericardial or pleural effusion. Clear neck base. No enlarged axillary adenopathy. Multiple mediastinal lymph nodes are seen as follows: Aortopulmonary recess lymph node measuring 1.3 x 1.0 cm, previously 1.9 x 1.2 cm (series 2 image 20). Subcarinal lymph node measuring 2.0 x 0.7 cm, previously 4.1 x 2.1 cm (series 2 image 28). Left hilar lymph node measuring 1.4 x 1.1 cm, previously 2.2 x 2.2 cm. Mild emphysema. Central airways are patent. Stable couple of 2 mm nodules in the subpleural right upper lobe (series 2 image 23 and 24). Visualized sections through the liver, spleen, gallbladder, pancreas, adrenals and kidneys within normal limits. No suspicious bony lesion. IMPRESSION: Improvement in previously seen mediastinal and hilar adenopathy. Mild emphysema with couple of nonspecific 2-3 mm nodules in the right upper lobe. Follow-up CT chest in one year recommended depending on the risk factors. Electronically signed by: Claudy Gamboa DO (09/02/2018 10:53 AM) [facility]
== END | disposition home or self-care (01) ==
LOC: CT 09:09
PROVIDERS: ATTEND Internal Medicine Hematology & Oncology
DX: J43.9 Emphysema, unspecified (principal); R91.8 Other nonspecific abnormal finding of lung field; R59.0 Localized enlarged lymph nodes
CPT/HCPCS: 71260; Q9967

== ENCOUNTER → 2018-09-16 | Outpatient (CLI) | payer MEDICARE ==
[~2018-09-16] MED LIST changes: -IOHEXOL 300 MG/ML 100ML VIAL. IV ONE; +ZOLPIDEM 5 MG TABLET. PO ONE
--- NOTE | 2018-09-17 12:21 | SLEEP ---
DATE OF STUDY: 09/16/2018 ATTENDING PHYSICIAN: Sukumar Gibbs MD REFERRING PHYSICIAN: Barby Ewing MD The patient is a 72-year-old who weighs 225 pounds with a BMI of 41. The patient's Marshall score was 10. The patient underwent split night study performed at [facility]. During the night study, the patient spent 423 minutes in bed and slept for 349 minutes with a sleep efficiency of 82%. Sleep latency was 58 minutes with a REM latency of 392 minutes. Both were prolonged. Sleep architecture showed normal stage 1 sleep, increased stage 2 sleep, normal slow wave and reduced REM sleep, which is only 3% of the total sleep time. During the initial diagnostic portion of the study, the patient slept for 97 minutes. During that time, there were 3 mixed apneas, no obstructive or central apneas and 67 hypopneas. The patient's apnea hypopnea index was 44 per hour with a supine index of 44 per hour, as patient slept supine throughout. REM sleep was not seen. EKG monitoring revealed average heart rate of 52 beats per minute, no sustained arrhythmias observed. The patient did have PACs and some conduction abnormalities. No PLMS observed. Nocturnal oximetry study revealed a mean oxygen saturation of 90% with the lowest of 65%. 56% of time oxygen saturation remained between 80% and 89%, and 31% of time between 70% and 79%. The patient met the criteria for CPAP initiation. It was started at 5 cm water and titrated up to 20 cm water. At the final pressure, the patient slept for 65 minutes. The patient had supine sleep throughout and REM sleep was also observed. The patient's AHI was reduced to 1 per hour and oxygen saturations remained in the mid 80s to high 80s with the lowest saturation of 84%. The patient may benefit from 1 liter of oxygen. The patient uses a small size full face mask. IMPRESSION: 1. Severe sleep apnea-hypopnea syndrome at an AHI of 44 per hour. REM sleep was not seen during the diagnostic portion of the study. 2. Moderate to severe nocturnal hypoxia secondary to combination of sleep apnea and possible underlying cardiac or pulmonary conditions. 3. No clinically significant periodic limb movements. RECOMMENDATIONS: 1. CPAP at 20 cm water along with 1 liter of supplemental oxygen, should be used on a nightly basis. 2. Follow up in 4-6 weeks to assess compliance with CPAP and to document clinical improvement. 3. Weight loss is strongly advised. 4. Avoid [employer] depressants. 5. Cautioned regarding driving until symptoms of sleep apnea resolve with the use of CPAP. DEMETRIA LAWRENCE MD DR: BRADFORD/denny JOB#: [id number] / [id number] BARBY Ronquillo MD
== END | disposition home or self-care (01) ==
LOC: SLPLAB 19:01
PROVIDERS: ATTEND Internal Medicine Pulmonary Disease
DX: G47.33 Obstructive sleep apnea (adult) (pediatric) (principal); G47.34 Idiopathic sleep related nonobstructive alveolar hypoventilation
CPT/HCPCS: 95810

== ENCOUNTER → 2018-10-05 | Outpatient (CLI) | payer MEDICARE ==
[~2018-10-05] MED LIST changes: -ZOLPIDEM 5 MG TABLET. PO ONE
--- NOTE | 2018-10-05 10:22 | RAD ---
EXAM: Pelvic sonogram. HISTORY: Postmenopausal bleeding. TECHNIQUE: Transabdominal sonographic imaging of the pelvis was performed. The patient deferred transvaginal imaging. COMPARISON: None. FINDINGS: The uterus measures 5.3 x 5.0 x 2.3 cm. The endometrial stripe is thin, measuring 2.1 mm. The ovaries are not seen. There is no pelvic free fluid. There is no adnexal mass or cyst. IMPRESSION: 1. Limited evaluation due to the absence of transvaginal images. The ovaries are not seen. The patient deferred transvaginal imaging. 2. Thin endometrial stripe. Electronically signed by: Paige English MD (10/05/2018 10:19 AM) [email or web address]
== END | disposition home or self-care (01) ==
LOC: US 09:11
PROVIDERS: ATTEND Internal Medicine Hematology & Oncology
DX: N95.0 Postmenopausal bleeding (principal); Z79.01 Long term (current) use of anticoagulants
CPT/HCPCS: 76856

== ENCOUNTER → 2019-02-11 | Outpatient (CLI) | payer MEDICARE ==
--- NOTE | 2019-02-11 14:20 | RAD ---
DATE: 02/11/2019. EXAM: MAMMO YAMILA IZZY IZAGUIRREAT, BREAST LEFT. HISTORY: Six-month follow-up of a left breast lesion was requested. Patient did not return. She now presents for yearly surveillance. COMPARISON: 01/07/2018, 07/29/2017, 07/22/2017. This study was interpreted with the benefit of Computerized Aided Detection (CAD). FINDINGS: Breast Density: SCATTERED The breast parenchyma shows scattered fibroglandular densities. Breast parenchyma level B.. The mammographic focus of prior concern medially on the left is less apparent. On today's sonography, at 8:00 position 4 cm from the nipple, a tiny hypoechoic circumscribed nodule measures 3 x 3 mm and is stable since at least July 2017. There is no suspicious sonographic finding. Elsewhere, scattered and coarse calcifications are benign. A parenchymal island inferiorly on the right is stable. There is no suspicious finding. BI-RADS CATEGORY: 2 BENIGN FINDING(S). RECOMMENDED FOLLOW-UP: 12M 12 MONTH FOLLOW-UP. 1. Resume bilateral screening mammography in 12 months. PQRS compliance statement: Patient information was entered into a reminder system with a target due date 02/12/2020 for the next mammogram. Mammography is a sensitive method for finding small breast cancers, but it does not detect them all and is not a substitute for careful clinical examination. A negative mammogram does not negate a clinically suspicious finding and should not result in delay in biopsying a clinically suspicious abnormality. "Our facility is accredited by the [employer] Mammography Program."
== END | disposition home or self-care (01) ==
LOC: MAMMO 13:15
PROVIDERS: ATTEND Family Medicine
DX: N63.24 Unspecified lump in the left breast, lower inner quadrant (principal)
CPT/HCPCS: 76641; 77066; G0279; 77062

== ENCOUNTER → 2019-08-24 | Outpatient (CLI) | payer MEDICARE ==
[~2019-08-24] MED LIST changes: +CONTRAST GIVEN. MC PRN; +IOHEXOL 300 MG/ML 100ML VIAL. IV ONE; -PARO25TA3 PO; +PARO25TA4 PO
[2019-08-24 13:46] LABS: ALBUMIN 3.7 g/dL (3.4-5.0); ALBUMIN/GLOBULIN RATIO 0.9 (1.0-1.7); CALCIUM 8.9 mg/dL (8.5-10.1); CREATININE 0.8 mg/dL (0.6-1.0); GFR 70.7; POTASSIUM 4.2 mmol/L (3.5-5.1); TOTAL BILIRUBIN 0.6 mg/dL (0.2-1.0); TOTAL PROTEIN 7.6 g/dL (6.4-8.2)
--- NOTE | 2019-08-24 16:04 | RAD ---
Examination: CT chest with IV contrast HISTORY: History of pulmonary nodule Comparison: 06/05/2018 TECHNIQUE: Axial CT images of the chest were performed with IV contrast. Coronal and sagittal reformats are performed Exposure: One or more of the following individualized dose reduction techniques were utilized for this examination: 1. Automated exposure control 2. Adjustment of the mA and/or kV according to patient size 3. Use of iterative reconstruction technique FINDINGS: The visualized thyroid gland grossly appears unremarkable. Central airways are patent. Heart size grossly appears unremarkable. No evidence for significant mediastinal lymphadenopathy. Severe bilateral lung emphysematous changes. 3 mm nodule identified in the right upper lobe of the lung. Few scattered 2 to 3 mm nodules identified in the bilateral lungs similar to prior exam. No evidence of pleural effusion or pneumothorax. Improved mediastinal and bilateral hilar lymph nodes. The visualized liver, spleen, adrenals grossly appears unremarkable. Moderate degenerative changes thoracic spine. IMPRESSION: 1. Scattered 2 to 3 mm nodules bilateral lungs unchanged compared to prior exam. 2. Severe bilateral lung emphysematous changes. Electronically signed by: Edward Costa MD (08/24/2019 4:02 PM) [id number]
== END | disposition home or self-care (01) ==
LOC: CT 13:10
PROVIDERS: ATTEND Family Medicine
DX: R91.8 Other nonspecific abnormal finding of lung field (principal); J43.9 Emphysema, unspecified; M47.894 Other spondylosis, thoracic region; I82.432 Acute embolism and thrombosis of left popliteal vein; I26.99 Other pulmonary embolism without acute cor pulmonale; I50.9 Heart failure, unspecified
CPT/HCPCS: 36415; 71260; 80053; Q9967

== ENCOUNTER → 2019-11-25 | Outpatient (CLI) | payer MEDICARE ==
[~2019-11-25] MED LIST changes: -CONTRAST GIVEN. MC PRN; -IOHEXOL 300 MG/ML 100ML VIAL. IV ONE
--- NOTE | 2019-11-25 15:25 | RAD ---
DUPLEX LOWER EXTREMITY BILAT Indication: Reason: / Spl. Instructions: / History: Comparison: None. Procedure: Real-time grayscale, color flow Doppler, and Doppler spectral waveform analysis of the arterial system of the lower extremity is performed. Findings: Right lower extremity: Monophasic waveform within the right deep femoral, peroneal, anterior tibial and dorsalis pedis arteries. Mildly elevated velocity within the right common femoral artery measures 190 cm/s, deep femoral artery measures 159 cm/s and superficial femoral artery measures 159 cm/s. Right inguinal mildly enlarged lymph node measures 3.1 x 2.4 x 0.9 cm. Mild scattered atheromatous plaque. Left lower extremity: Monophasic waveform within the left deep femoral and dorsalis pedis arteries. Borderline elevated velocity within the left common femoral artery measures 152 cm/s. Mild scattered atheromatous plaque. IMPRESSION: 1. Monophasic waveform within the right deep femoral and distal lower extremity, may indicate proximal stenosis. 2. Mildly elevated velocity within the right common femoral, deep femoral and superficial femoral arteries, may indicate 30-49 percent stenosis. 3. Monophasic waveform within the left deep femoral and dorsalis pedis arteries, may indicate proximal stenosis. 4. Mildly elevated velocity within the left common femoral artery, may indicate 30-49 percent stenosis. Electronically signed by: Denny Fuller DO (11/25/2019 3:22 PM) [id number]
== END ==
LOC: US 13:30
PROVIDERS: ATTEND Family Medicine
DX: M79.604 Pain in right leg (principal); R59.0 Localized enlarged lymph nodes
CPT/HCPCS: 93925

== ENCOUNTER → 2020-02-15 | Outpatient (CLI) | payer MEDICARE ==
[~2020-02-15] MED LIST changes: +AMLO-186 PO; -AMLO5TAB10 PO
--- NOTE | 2020-02-16 10:55 | RAD ---
DATE: 02/15/2020 12:46 PM EXAM: MAMMO YAMILA SCREENING BILATERAL HISTORY: Screening COMPARISON: 02/11/2019 Bilateral CC and MLO views of the breasts were performed. Bilateral breast tomosynthesis was performed in CC and MLO projections. This study was interpreted with the benefit of Computerized Aided Detection (CAD). FINDINGS: Breast Density: FATTY The Breast Parenchyma is primarily fatty replaced. Breast parenchyma level density A. No suspicious masses, microcalcifications or architectural distortion is present to suggest malignancy in either breast. The visualized axillae are unremarkable. IMPRESSION: No mammographic evidence of malignancy. BI-RADS CATEGORY: 1 NEGATIVE RECOMMENDED FOLLOW-UP: 12M 12 MONTH FOLLOW-UP Annual screening mammography is recommended, unless clinically indicated sooner based on symptoms or change in physical exam. PQRS compliance statement: Patient information was entered into a reminder system with a target due date for the next mammogram. Mammography is a sensitive method for finding small breast cancers, but it does not detect them all and is not a substitute for careful clinical examination. A negative mammogram does not negate a clinically suspicious finding and should not result in delay in biopsying a clinically suspicious abnormality. "Our facility is accredited by the [employer] Mammography Program."
== END ==
LOC: MAMMO 12:42
PROVIDERS: ATTEND Family Medicine
DX: Z12.31 Encounter for screening mammogram for malignant neoplasm of breast (principal)
CPT/HCPCS: 77063; 77067

== ENCOUNTER → 2020-08-22 | Outpatient (CLI) | payer MEDICARE ==
--- NOTE | 2020-08-22 11:47 | KCIC ---
PQRS Compliance Statement: One or more of the following individualized dose reduction techniques were utilized for this examinat ion: 1. Automated exposure control 2. Adjustment of the mA and/or kV according to patient size 3. Use of iterative reconstruction technique CT THORAX WO 08/22/2020 9:48 AM Indication: Lung nodule follow-up. COPD. Past smoker. COMPARISON: CT chest 08/24/2019, 09/02/2018. TECHNIQUE: Multiple axial CT images of the chest were obtained without intravenous contrast. Coronal and sagittal reformats are provided. FINDINGS: There is a 3 mm solid noncalcified pulmonary nodule in the right upper lobe (series 2, image 25), sta ble dating back to 09/02/2018. Stable 6 mm solid noncalcified pulmonary nodule along the minor fissure (series 2, image 30). No new or enlarging solid noncalcified pleura nodules dating back to 08/29/2018 . No pleural effusions and plantar vascular congestion or pneumothorax. Mild centrilobular pulmonary emphysema with upper lobe predominance. Bronchial wall thickening compatible with nonspecific bronchi tis. Thyroid gland is normal in appearance. Precarinal lymph node measures 7 mm. Heart size within no rmal limits. No pericardial effusion. Thoracic aorta is normal in course and caliber with mild calcif ied plaque. Visualized portions of the upper abdomen appear normal. Right axillary lymph node measure s up to 8 mm. Left axillary lymph node measures up to 8 mm with rounded morphology (series 2, image 1 8), stable. No suspicious osseous normality. IMPRESSION: Stable solid noncalcified pulmonary nodules measuring up to 6 mm along the minor fissure. Findings ar e stable dating back to 09/02/2018 and presumed benign. Mild centrilobular pulmonary emphysema nonspecific bronchitis compatible with mild COPD changes. Electronically signed by: Nikki Lobo MD (08/22/2020 11:44 AM) [id number]
== END ==
LOC: KCIC CT 09:45
PROVIDERS: ATTEND Internal Medicine Pulmonary Disease
DX: R91.8 Other nonspecific abnormal finding of lung field (principal); J43.2 Centrilobular emphysema; I70.0 Atherosclerosis of aorta; J40 Bronchitis, not specified as acute or chronic
CPT/HCPCS: 71250

== ENCOUNTER → 2020-12-25 | Outpatient (CLI) | payer MEDICARE | LOC: SPEC 10:11 | PROVIDERS: ATTEND Pediatrics | DX: S31.109A Unspecified open wound of abdominal wall, unspecified quadrant without penetration into peritoneal cavity, initial encounter (principal); X58.XXXA Exposure to other specified factors, initial encounter; Y93.89 Activity, other specified; Y92.89 Other specified places as the place of occurrence of the external cause; Y99.8 Other external cause status | CPT/HCPCS: 87071; 87075; 87077; 87186 ==

== ENCOUNTER → 2021-03-05 | Outpatient (CLI) | payer MEDICARE ==
[~2021-03-05] MED LIST changes: +PARO25TA16 PO; -PARO25TA4 PO
--- NOTE | 2021-03-06 11:58 | RAD ---
Bilateral digital screening 2-D and 3-D (digital breast tomosynthesis) mammogram: Reason for examination: Routine screening. Comparison: Mammograms from 02/15/2020 and 02/11/2019. Interpretation was made with the benefit of CAD. FINDINGS: Breast density: Category B. There are scattered areas of fibroglandular density. No suspicious breast mass, malignant appearing calcifications, or architectural distortion is seen. IMPRESSION: No evidence of malignancy. Assessment: BI-RADS 1. Negative. Recommendation: Routine screening mammograms. The patient will receive a letter with the results in the mail. Patient information will be entered i nto the mammography reminder system with a target recall date for the next mammogram. A reminder kvng er will be generated. Electronically signed by: Debi Bunch MD (03/06/2021 11:55 AM) [id number]
== END ==
LOC: MAMMO 12:25
PROVIDERS: ATTEND Family Medicine
DX: Z12.31 Encounter for screening mammogram for malignant neoplasm of breast (principal)
CPT/HCPCS: 77063; 77067

== ENCOUNTER 2021-04-21 15:06 | Emergency (ER) | payer MEDICARE, OTHER ==
[~2021-04-21] VITALS: Ht 157.5 cm; Wt 112.5 kg
--- NOTE | 2021-04-21 17:10 | RAD ---
Exam Date: 04/21/2021 4:[address] HEAD AND C-SPINE WO, CT MAXILLOFACIAL WITHOUT CONTRAST Indication: Reason: fall / Spl. Instructions: / History: . One or more of the following dose reduction techniques were utilized: *Automated exposure control (AEC) *Adjustment of mA and/or kV according to patient size *Use of iterative reconstruction technique *CT scan done according to ALARA, or ALARA/IMAGE GENTLY EXAMINATION: CT OF THE HEAD WITHOUT CONTRAST INDICATION: Trauma, head injury, headache; TECHNIQUE: Noncontrast helical axial CT images of the head were obtained. FINDINGS: There is right frontal scalp and right periorbital soft tissue swelling and hematoma. No depressed a cute skull fracture is seen. The ventricles and sulci are prominent consistent with cerebral volume loss. Patchy ill-defined low attenuation areas in the subcortical and periventricular white matter bilaterally are consistent with microvascular disease. There is no evidence of acute intracranial hemorrhage, extra-axial collecti on, mass effect, midline shift, or acute territorial infarct. No lesion of the skull base or the calv arium is seen. The visualized paranasal sinuses, mastoid air cells, and orbits are normal in appearan ce. IMPRESSION: No evidence for acute intracranial abnormality. Right frontal scalp and right pararenal soft tissue swelling and hematoma without displaced acute fra cture. Volume loss and microvascular disease. EXAMINATION: MAXILLOFACIAL CT WITHOUT CONTRAST CLINICAL INDICATION: Maxillofacial pain after trauma TECHNIQUE: Helical axial CT images through the maxillofacial bones were obtained without contrast. So urce data were reconstructed into the sagittal and coronal planes. FINDINGS: There is right frontal scalp and right periorbital soft tissue swelling and hematoma. No displaced a cute fracture is seen. There is no evidence of acute facial bone fracture. The mandible appears intact. Orbits appear intact . The nasal septum is intact and near midline. The visualized paranasal sinuses and mastoid air cells appear clear. IMPRESSION: Right frontal scalp and right pararenal soft tissue swelling and hematoma without displaced acute fra cture. EXAMINATION: CT OF THE CERVICAL SPINE WITHOUT CONTRAST Clinical Indication: Cervical spine pain after trauma Technique: Thin cut helical axial CT images through the cervical spine were obtained without contrast on a multi-detector CT scanner. Source data was then reconstructed into sagittal and coronal planes. Findings: Alignment is maintained without spondylolisthesis. Vertebral body heights are maintained without acute fracture. Moderate to severe multilevel degenerat es changes are noted. No significant prevertebral soft tissue swelling is demonstrated. No severe os seous central canal stenosis is seen. Severe emphysematous changes are seen in the lung apices. Impression: No evidence of acute cervical spine fracture or subluxation. Electronically signed by: Kevin Marrero MD (04/21/2021 5:07 PM) [facility]
--- NOTE | 2021-04-21 17:11 | PHYS DOC ---
Past Medical History Past Medical History: Hypertension, Other Additional Past Medical Histor: EMPHYSEMA, HOME O2- 2 LI (ANGELICA VERNON Charles SENIOR CLINICAL CONSULTANT) Past Surgical History: , Other Additional Past Surgical Histo: BLADDER LIFT,HERNIA,LUMPECTOMY (ANGELICA VERNON Charles SENIOR CLINICAL CONSULTANT) Smoking Status: Former Smoker Alcohol Use: None Drug Use: None (ANGELICA VERNON Charles SENIOR CLINICAL CONSULTANT) General Adult EDM: Chief Complaint: MECHANICAL FALL HPI: HPI: Patient is a 75 year old female with history of hypertension presenting today to be evaluated after falling. Patient states she missed a step and fell hitting her face on the staircase. Denies any loss of consciousness. Reports right eye/forehead hematoma. Denies being on any blood thinners. Denies any neck pain, mid or low back pain. Denies any vision loss (ANGELICA VERNON Charles SENIOR CLINICAL CONSULTANT) Review of Systems: Review of Systems: Constitutional: Denies fever or chills. [] Eyes: Reports right eye contusion. Denies change in visual acuity. [] HENT: Denies nasal congestion or sore throat. [] Respiratory: Denies cough or shortness of breath. [] Cardiovascular: Denies chest pain or edema. [] GI: Denies abdominal pain, nausea, vomiting, bloody stools or diarrhea. [] : Denies dysuria. [] Musculoskeletal: Denies back pain or joint pain. [] Integument: Denies rash. [] Neurologic: Denies headache, focal weakness or sensory changes. [] Psychiatric: Denies depression or anxiety. [] (WHITJULEEANGELICA Solroio SENIOR CLINICAL CONSULTANT) Heart Score: C/O Chest Pain: N/A Risk Factors: Risk Factors: DM, Current or recent (<one month) smoker, HTN, HLP, family history of CAD, obesity. Risk Scores: Score 0 - 3: 2.5% MACE over next 6 weeks - Discharge Home Score 4 - 6: 20.3% MACE over next 6 weeks - Admit for Clinical Observation Score 7 - 10: 72.7% MACE over next 6 weeks - Early Invasive Strategies (ANGELICA VERNON SENIOR CLINICAL CONSULTANT) Allergies: Allergies: Allergies Coded Allergies Type Severity Reaction Last Updated Verified I S O L A T I O N *CONTACT* Allergy Unknown 12/28/20 Yes Penicillins Allergy Unknown 01/08/17 Yes (ANGELICA VERNON SENIOR CLINICAL CONSULTANT) Physical Exam: PE: Constitutional: Well developed, well nourished, no acute distress, non-toxic appearance. [] HENT: Normocephalic, bilateral external ears normal, oropharynx moist, no oral exudates, nose normal. Eyes: Moderate periorbital ecchymosis noted on the right eye with moderate contusion in the right forehead, no entrapment syndrome, PERRLA, EOMI, conjunctiva normal, no discharge. [] Neck: Normal range of motion, no tenderness, supple, no stridor. [] Cardiovascular:Heart rate regular rhythm, no murmur [] Lungs & Thorax: Bilateral breath sounds clear to auscultation [] Abdomen: Bowel sounds normal, soft, no tenderness, no masses, no pulsatile masses. [] Skin: Warm, dry, no erythema, no rash. [] Back: No tenderness, no CVA tenderness. [] Extremities: Right elbow with bruising, left elbow with slight bruising. No tenderness on elbows. Full range of motion to bilateral elbows, full range of motion to bilateral forearms. +2 bilateral radial pulses. Adequate radial, medial, ulnar sensation bilaterally. Cap refill less than 2 seconds of robert ateral fingers Neurologic: Alert and oriented X 3, normal motor function, normal sensory function, no focal deficits noted. Cranial nerves II through XII intact Psychologic: Affect normal, judgement normal, mood normal. [] (ANGELICA VERNON SENIOR CLINICAL CONSULTANT) Current Patient Data: Vital Signs: Vital Signs Date Time Temp Pulse Resp B/P (MAP) Pulse Ox O2 Delivery O2 Flow Rate FiO2 04/21/21 15:40 98.4 69 16 168/74 (105) 96 Nasal Cannula 2.0 98.4 (ANGELICA VERNON SENIOR CLINICAL CONSULTANT) EKG: EKG: [] (ANGELICA VERNON SENIOR CLINICAL CONSULTANT) Radiology/Procedures: Radiology/Procedures: []PROCEDURE: CT MAXILLOFACIAL WO CONTRAST Exam Date: 04/21/2021 4:[address] HEAD AND C-SPINE WO, CT MAXILLOFACIAL WITHOUT CONTRAST Indication: Reason: fall / Spl. Instructions: / History: . One or more of the following dose reduction techniques were utilized: *Automated exposure control (AEC) *Adjustment of mA and/or kV according to patient size *Use of iterative reconstruction technique *CT scan done according to ALARA, or ALARA/IMAGE GENTLY EXAMINATION: CT OF THE HEAD WITHOUT CONTRAST INDICATION: Trauma, head injury, headache; TECHNIQUE: Noncontrast helical axial CT images of the head were obtained. FINDINGS: There is right frontal scalp and right periorbital soft tissue swelling and hematoma. No depressed acute skull fracture is seen. The ventricles and sulci are prominent consistent with cerebral volume loss. Patchy ill-defined low attenuation areas in the subcortical and periventricular white matter bilaterally are consistent with microvascular disease. There is no evidence of acute intracranial hemorrhage, extra-axial collection, mass effect, midline shift, or acute territorial infarct. No lesion of the skull base or the calvarium is seen. The visualized paranasal sinuses, mastoid air cells, and orbits are normal in appearance. IMPRESSION: No evidence for acute intracranial abnormality. Right frontal scalp and right pararenal soft tissue swelling and hematoma without displaced acute fracture. Volume loss and microvascular disease. EXAMINATION: MAXILLOFACIAL CT WITHOUT CONTRAST CLINICAL INDICATION: Maxillofacial pain after trauma TECHNIQUE: Helical axial CT images through the maxillofacial bones were obtained without contrast. Source data were reconstructed into the sagittal and coronal planes. FINDINGS: There is right frontal scalp and right periorbital soft tissue swelling and hematoma. No displaced acute fracture is seen. There is no evidence of acute facial bone fracture. The mandible appears intact. Orbits appear intact. The nasal septum is intact and near midline. The visualized paranasal sinuses and mastoid air cells appear clear. IMPRESSION: Right frontal scalp and right pararenal soft tissue swelling and hematoma without displaced acute fracture. EXAMINATION: CT OF THE CERVICAL SPINE WITHOUT CONTRAST Clinical Indication: Cervical spine pain after trauma Technique: Thin cut helical axial CT images through the cervical spine were obtained without contrast on a multi-detector CT scanner. Source data was then reconstructed into sagittal and coronal planes. Findings: Alignment is maintained without spondylolisthesis. Vertebral body heights are maintained without acute fracture. Moderate to severe multilevel degenerative changes are noted. No significant prevertebral soft tissue swelling is demonstrated. No severe osseous central canal stenosis is seen. Severe emphysematous changes are seen in the lung apices. Impression: No evidence of acute cervical spine fracture or subluxation. Electronically signed by: Lissy Marrero MD (04/21/2021 5:07 PM) [facility] DICTATED and SIGNED BY: LISSY MARRERO MD DATE: 04/21/21 [id number] PROCEDURE: ELBOW BILAT 3V Exam: Right elbow 3 views. Left elbow 3 views INDICATION: Fall TECHNIQUE: Frontal, lateral and oblique views of the right and left elbow Comparisons: None FINDINGS: Left elbow: Bone mineralization is normal. No acute or healed fractures. Soft tissues are unremarkable. Joint spaces are well-maintained. Right elbow: Bone mineralization is normal. No acute or healed fractures. Soft tissues are unremarkable. Joint spaces are well-maintained. IMPRESSION: No acute osseous abnormality of the right or left elbow. Electronically signed by: Elo Wilburn MD (04/21/2021 6:51 PM) [facility] DICTATED and SIGNED BY: ELO WILBURN MD DATE: 04/21/21 [id number] (ANGELICA VERNON APRN) Course & Med Decision Making: Course & Med Decision Making Pertinent Labs and Imaging studies reviewed. (See chart for details) This a 75-year-old female patient presenting to the ED today to be evaluated after falling today. CT of the head, cervical spine, maxillofacial were negative for any acute findings, noted for right frontal scalp and right pararenal soft tissue swelling and hematoma without displaced acute fracture. Bilateral elbow x-rays are negative for any acute findings tetanus up-to-date Of note patient is walking with a walker in the ED with no difficulties. UA not obtainable because patient voided in the toilet Discharge to home. Ice elevation of the head and affected extremities encouraged. Follow-up with PCP next week (ANGELICA VERNON APRN) Course & Med Decision Making Patients Care and treatment plan provided by ER Nurse Practitioner. I was available for consult. Patient's chart reviewed. (OLIVER GARCIA DO) Estela Disclaimer: Estela Disclaimer: This electronic medical record was generated, in whole or in part, using a voice recognition dictation system. (ANEGLICA VERNON APRN) Departure Departure Impression: Primary Impression: Fall Qualified Codes: W19.XXXA - Unspecified fall, initial encounter Additional Impressions: Traumatic hematoma of forehead Qualified Codes: S00.83XA - Contusion of other part of head, initial encounter Elbow contusion Qualified Codes: S50.00XA - Contusion of unspecified elbow, initial encounter Disposition: HOME / SELF CARE / HOMELESS Condition: STABLE Referrals: ART TOTH MD (PCP) follow up next week Patient Instructions: Contusion, Facial or Scalp Contusion, [id number] Additional Instructions: You were seen in the emergency room after falling, your CT of the head, face and neck were negative for any acute findings, your x-rays of the elbows are negative for any acute findings. You have a hematoma on your right forehead and around the right eye. Try to ice and elevate the affected area. You can take Tylenol as needed for pain. Follow-up with your doctor next week ANGELICA VERNON APRN Apr 21, 2021 17:11 OLIVER GARCIA DO Apr 22, 2021 18:40
[2021-04-21 18:30] VITALS: BP 164/117
--- NOTE | 2021-04-21 18:53 | RAD ---
Exam: Right elbow 3 views. Left elbow 3 views INDICATION: Fall TECHNIQUE: Frontal, lateral and oblique views of the right and left elbow Comparisons: None FINDINGS: Left elbow: Bone mineralization is normal. No acute or healed fractures. Soft tissues are unremarkable. Joint spa yadira are well-maintained. Right elbow: Bone mineralization is normal. No acute or healed fractures. Soft tissues are unremarkable. Joint spa yadira are well-maintained. IMPRESSION: No acute osseous abnormality of the right or left elbow. Electronically signed by: Elo Dixon MD (04/21/2021 6:51 PM) [facility]
== END 2021-04-21 19:33 | disposition home or self-care (01) ==
LOC: ER 15:06
DX: S00.83XA Contusion of other part of head, initial encounter (principal); S50.01XA Contusion of right elbow, initial encounter; S50.02XA Contusion of left elbow, initial encounter; I10 Essential (primary) hypertension; Z88.0 Allergy status to penicillin; Z88.8 Allergy status to other drugs, medicaments and biological substances; W10.8XXA Fall (on) (from) other stairs and steps, initial encounter; Y93.89 Activity, other specified; Y92.89 Other specified places as the place of occurrence of the external cause; Y99.8 Other external cause status
CPT/HCPCS: 70450; 70486; 72125; 99284; 73080-50